=== PATIENT | male | born 1935 | race Caucasian/White ===

== ENCOUNTER 2017-07-10 19:06 | Emergency (ER) | payer MEDICARE, BC ==
[2017-07-10 19:19] VITALS: BP 159/64
--- NOTE | 2017-07-10 19:41 | EDM.PDOC ---
ED HPI GENERAL MEDICAL PROBLEM - General Chief Complaint: Back Pain or Injury Stated Complaint: CAN'T TURN HIS NECK Time Seen by Provider: 07/10/17 19:16 Source of Information: Reports: Patient, Family History Limitations: Reports: No Limitations - History of Present Illness INITIAL COMMENTS - FREE TEXT/NARRATIVE: His is an 82-year-old male. He states he woke up this morning with right-sided neck pain. Due to a history of lumbar pain and sciatica he has a very difficult time and sleeping at nighttime and frequently sleeps on his left side or his back. When he sleeps on his left side he is not sure if his pillow supports his neck are not and it could be the reason why the right side of his neck is hurting because he doesn't have good cervical support when sleeping on his left side. He denies any pain down his arms he just complains of right-sided neck pain and muscle and shoulder pain. He has no history of falling down of history of trauma. He says he just woke up this morning and he had the pain. No cough no congestion no fever no chills no other acute symptoms. Neck Pain Score (Numeric/FACES): 5 - Related Data Allergies Allergy/AdvReac Type Severity Reaction Status Date / Time Penicillins Allergy Rash Verified 07/10/17 19:19 Sulfa (Sulfonamide Allergy Other Verified 07/10/17 19:19 Antibiotics) Home Meds: Home Meds Omeprazole [Prilosec] 20 mg PO DAILY 08/31/15 [History] Sertraline HCl [Sertraline HCl] 50 mg PO DAILY 08/31/15 [History] Cyclobenzaprine [Flexeril] 5 mg PO Q8H PRN #10 tablet 07/10/17 [Rx] Furosemide [Lasix] 5 mg PO BID 07/10/17 [History] Polyethylene Glycol 3350 [MiraLAX] 17 gm PO DAILY 07/10/17 [History] traMADol [Ultram] 50 mg PO Q8H #10 tablet 07/10/17 [Rx] Past Medical History HEENT History: Reports: Impaired Vision Gastrointestinal History: Reports: Chronic Constipation Musculoskeletal History: Reports: Back Pain, Chronic Psychiatric History: Reports: Anxiety - Past Surgical History HEENT Surgical History: Reports: Cataract Surgery GI Surgical History: Reports: Appendectomy, Hernia, Inguinal Social & Family History - Tobacco Use Smoking Status *Q: Former Smoker Used Tobacco, but Quit: Yes Month Tobacco Last Used: 40 years ago Second Hand Smoke Exposure: No - Caffeine Use Caffeine Use: Reports: Soda - Recreational Drug Use Recreational Drug Use: No ED ROS GENERAL - Review of Systems Review Of Systems: See Below Constitutional: Denies: Fever, Chills HEENT: Reports: No Symptoms Respiratory: Reports: No Symptoms Cardiovascular: Reports: No Symptoms GI/Abdominal: Reports: No Symptoms : Reports: No Symptoms Musculoskeletal: Reports: Other (Chronic low back pain.) Skin: Reports: No Symptoms Neurological: Reports: Other (Sciatica) Psychiatric: Reports: No Symptoms Hematologic/Lymphatic: Reports: No Symptoms ED EXAM, UPPER BACK/NECK PAIN - Physical Exam Exam: See Below Exam Limited By: No Limitations General Appearance: Alert, WD/WN, No Apparent Distress Eye Exam: Bilateral Eye: Normal Inspection Ears Exam: Normal External Exam Nose Exam: Normal Inspection Throat/Mouth Exam: Normal Inspection, Normal Lips, Normal Voice, No Airway Compromise Head Exam: Normocephalic Neck Exam: Other (Very tender along the right paraspinal muscles and the ligaments, he also has lots of tenderness in the right trapezius muscle as well and slightly into the right upper back area, the left side is nontender, the midline spine is nontender, he does have difficulty in turning his neck to the right though he can get to approximately 30 with rotation right and left, he is not able to flex or extend much secondary to some kyphosis and arthritis) Cardiovascular/Respiratory: Regular Rate, Rhythm GI/Abdominal: Soft Back Exam: Decreased Range of Motion, Other (He has chronic lumbar pain with sciatica) Extremities: Other (He is somewhat stiff and has decreased mobility in his legs and arms believed to be due to arthritis and old age) Neurologic: No Motor/Sensory Deficits, Alert, Normal Mood/Affect, Oriented x 3 Psychiatric: Normal Affect, Normal Mood Skin Exam: Normal Color, Warm/Dry Course - Vital Signs Last Recorded V/S: Last Vital Signs Temp 97.6 F 07/10/17 19:15 Pulse 77 07/10/17 19:15 Resp 18 07/10/17 19:15 BP 159/64 H 07/10/17 19:15 Pulse Ox 99 07/10/17 19:15 - Orders/Labs/Meds Orders: Active Orders 24 hr Category Date Time Status Cervical Spine 2V or 3V [CR] Stat Exams 07/10/17 19:37 Taken - Radiology Interpretation Free Text/Narrative:: X-rays of the cervical spine revealed severe degenerative changes and I don't see any acute abnormalities the bones. - Re-Assessments/Exams Free Text/Narrative Re-Assessment/Exam: 07/10/17 21:00 I spoke to the patient and the family, my concern is he is unsteady on his feet and to give him a muscle relaxer her a pain pill will make him even more unsteady and he might fall. I will put him on some Ultram at the lowest dose since it does have interaction with his sertraline but I am concerned about. I recommended that he see a chiropractor for his symptoms and I'm only going to give him a limited supply of pain meds and a very limited supply of muscle relaxers to help him through the weekend. Departure - Departure Time of Disposition: 21:04 Disposition: Home, Self-Care 01 Condition: Fair Clinical Impression: DJD (degenerative joint disease), cervical Cervical strain, acute Qualifiers: Encounter type: initial encounter Qualified Code(s): S16.1XXA - Strain of muscle, fascia and tendon at neck level, initial encounter - Discharge Information Prescriptions: Cyclobenzaprine [Flexeril] 5 mg PO Q8H PRN #10 tablet PRN Reason: Spasms traMADol [Ultram] 50 mg PO Q8H #10 tablet Referrals: Osman Calles MD [Primary Care Provider] - Forms: ED Department Discharge Additional Instructions: Take the medication as needed for pain and muscle stiffness and soreness but be very careful because they can make you less stable on your feet and I don't want to falling down and causing more injury, follow-up with your chiropractic on Wednesday for recheck of your neck, return to the ER if needed - My Orders Last 24 Hours: My Active Orders 07/10/17 19:37 Cervical Spine 2V or 3V [CR] Stat - Assessment/Plan Last 24 Hours: My Active Orders 07/10/17 19:37 Cervical Spine 2V or 3V [CR] Stat
[2017-07-10] MEDS ORDERED: traMADol 50 MG Tab PO ONE ×2 (20:56→20:59)
--- NOTE | 2017-07-11 17:44 | CR ---
Cervical spine: AP, lateral and odontoid views of the cervical spine were obtained. Comparison: No prior cervical spine imaging. Severe disc space narrowing is noted at C4-C5 and C5-C6 with moderate disc space narrowing at C6-C7. Minimal spondylolisthesis is noted at C4-C5 compatible with degenerative apophyseal change. Anterior osteophytes are noted at C4-C5, C5-C6 and C6-C7. Prevertebral soft tissues are normal. No acute abnormality is appreciated. Impression: 1. Degenerative change as noted above. Diagnostic code #2
== END 2017-07-10 21:20 | disposition home or self-care (01) ==
LOC: JD.ED 19:06
DX: S16.1XXA Strain of muscle, fascia and tendon at neck level, initial encounter (principal); M47.892 Other spondylosis, cervical region; Z88.0 Allergy status to penicillin; Z88.2 Allergy status to sulfonamides; Z79.899 Other long term (current) drug therapy; Z87.891 Personal history of nicotine dependence; X58.XXXA Exposure to other specified factors, initial encounter
CPT/HCPCS: 72040; 72040-26; 99283; A9270-GY

== ENCOUNTER 2018-06-13 03:07 | Inpatient (IN) | payer MEDICARE, BC ==
[2018-06-13] MEDS ORDERED: Sodium Chloride 0.9% 10 ML Syringe FLUSH PRN (03:34)
[2018-06-13] MEDS ORDERED: Sodium Chloride 0.9% 1,000 ML IV SCH (03:45)
--- NOTE | 2018-06-13 04:24 | EDM.PDOC ---
ED HPI GENERAL MEDICAL PROBLEM - General Chief Complaint: Back Pain or Injury Stated Complaint: [facility] Time Seen by Provider: 06/13/18 03:10 Source of Information: Reports: Patient, EMS, Family History Limitations: Reports: No Limitations - History of Present Illness INITIAL COMMENTS - FREE TEXT/NARRATIVE: The patient presents from [place] for a fall and confusion. The patient just moved into [facility] 6 months ago. His has noticed a steady decline. He is more confused and has generalized weakness. His is having to help him more with getting around their apartment and [place]. He has a history of right low back pain with right sided sciatica. He was going to have surgery 10 years ago on his back but he decided to wait. In 2017, he saw Dr Montano and he was going to do surgery but the patient got an infection and they could not do the surgery. His thinks he is not a candidate anymore. He did fall yesterday. His thinks he passed out when he was at the TV trying to turn it on. He was out for just a few seconds. He did land on his right hip and he has some pain with it. This evening he was trying to get up to go to the bathroom. He got caught up in his walker and he fell into the closet. His did not hear him because she stays in a different room. He alerted staff that came to help. He has right hip pain from the fall yesterday but today made it worse. He could walk on it somewhat yesterday. He did not hit his head or hurt his neck. He is having trouble urinating. It takes him awhile to go. He says it hurts when he urinates. He has no fever, chills, cough, congestion or runny nose. He has no chest pain or shortness of breath. Onset: Gradual Duration: Week(s): Location: Reports: Lower Extremity, Right (hip) Quality: Reports: Sharp Severity: Moderate Improves with: Reports: Immobilization Worsens with: Reports: Movement Context: Reports: Trauma (He fell yesterdy and tonight) Associated Symptoms: Reports: No Other Symptoms Back Pain Score (Numeric/FACES): 10 - Related Data Allergies Allergy/AdvReac Type Severity Reaction Status Date / Time Penicillins Allergy Rash Verified 06/13/18 03:18 Sulfa (Sulfonamide Allergy Other Verified 06/13/18 03:18 Antibiotics) Home Meds: Home Meds Omeprazole [Prilosec] 20 mg PO DAILY 08/31/15 [History] Sertraline HCl 50 mg PO DAILY 08/31/15 [History] Polyethylene Glycol 3350 [MiraLAX] 17 gm PO DAILY 07/10/17 [History] Past Medical History HEENT History: Reports: Impaired Vision Gastrointestinal History: Reports: Chronic Constipation Genitourinary History: Reports: Prostate Disorder Musculoskeletal History: Reports: Back Pain, Chronic Psychiatric History: Reports: Anxiety, Dementia Oncologic (Cancer) History: Reports: Prostate - Past Surgical History HEENT Surgical History: Reports: Cataract Surgery GI Surgical History: Reports: Appendectomy, Hernia, Inguinal Male Surgical History: Reports: Prostate Biopsy, Prostatectomy Social & Family History - Tobacco Use Smoking Status *Q: Former Smoker Used Tobacco, but Quit: Yes Month/Year Tobacco Last Used: 34 - Caffeine Use Caffeine Use: Reports: None - Recreational Drug Use Recreational Drug Use: No ED ROS GENERAL - Review of Systems Review Of Systems: See Below Constitutional: Reports: No Symptoms HEENT: Reports: No Symptoms Respiratory: Reports: No Symptoms Cardiovascular: Reports: No Symptoms Endocrine: Reports: No Symptoms GI/Abdominal: Reports: No Symptoms : Reports: No Symptoms Musculoskeletal: Reports: Back Pain, Other (Right hip pain) Neurological: Reports: Confusion ED EXAM,LOWER BACK PAIN/INJURY - Physical Exam Exam: See Below Exam Limited By: No Limitations General Appearance: Alert, No Apparent Distress Ears: Normal External Exam Nose: Normal Inspection Head: Atraumatic, Normocephalic Neck: Normal Inspection, Supple, Non-Tender Respiratory/Chest: No Respiratory Distress, Lungs Clear, Normal Breath Sounds Cardiovascular: Regular Rate, Rhythm, No Edema, No Murmur GI/Abdominal: Soft, Non-Tender, No Organomegaly, No Mass Extremities: Other (Moderate tenderness to the right hip. Good sensation and pulses distally.) EKG INTERPRETATION EKG Date: 06/13/18 Time: 03:41 Rhythm: NSR Rate (Beats/Min): 73 [place]: Normal P-Wave: Present QRS: Normal ST-T: Normal QT: Normal CT/PQ Interval: 1st degree HB Course - Vital Signs Last Recorded V/S: Last Vital Signs Temp 98.6 F 06/13/18 03:12 Pulse 79 06/13/18 03:12 Resp 20 06/13/18 03:12 BP 157/62 H 06/13/18 03:12 Pulse Ox 100 06/13/18 03:12 - Orders/Labs/Meds Orders: Active Orders 24 hr Category Date Time Status Cardiac Monitoring [RC] . DIRECTED Care 06/13/18 03:34 Active EKG Documentation Completion [RC] STAT Care 06/13/18 03:35 Active Peripheral IV Care [RC] . DIRECTED Care 06/13/18 03:35 Active Head wo Cont [CT] Stat Exams 06/13/18 03:35 Taken Hip Min 2V or 3V w Pelvis Rt [CR] Stat Exams 06/13/18 03:36 Taken CULTURE URINE [RM] Stat Lab 06/13/18 04:30 Received Sodium Chloride 0.9% [Normal Saline] 1,000 ml Med 06/13/18 03:45 Active IV ASDIRECTED Sodium Chloride 0.9% [Saline Flush] Med 06/13/18 03:34 Active 10 ml FLUSH ASDIRECTED PRN Peripheral IV Insertion Adult [OM.PC] Stat Oth 06/13/18 03:34 Ordered Medication Orders Sodium Chloride (Normal Saline) 1,000 mls @ 125 mls/hr IV ASDIRECTED CAROLA Last Admin: 06/13/18 03:40 Dose: 125 mls/hr Sodium Chloride (Saline Flush) 10 ml FLUSH ASDIRECTED PRN PRN Reason: Keep Vein Open Last Admin: 06/13/18 03:41 Dose: 10 ml Labs: Laboratory Tests 06/13/18 06/13/18 06/13/18 Range/Units 03:39 03:39 04:30 WBC 7.09 (4.23-9.07) K/mm3 RBC 4.78 (4.63-6.08) M/mm3 Hgb 13.7 (13.7-17.5) gm/L Hct 41.3 (40.1-51.0) % MCV 86.4 (79.0-92.2) fl MCH 28.7 (25.7-32.2) pg MCHC 33.2 (32.2-35.5) g/dl RDW Std Deviation 45.8 H (35.1-43.9) fL Plt Count 151 L (163-337) K/mm3 MPV 10.4 (9.4-12.3) fl Neut % (Auto) 77.7 H (34.0-67.9) % Lymph % (Auto) 10.2 L (21.8-53.1) % [place] % (Auto) 10.7 (5.3-12.2) % Eos % (Auto) 1.0 (0.8-7.0) Baso % (Auto) 0.3 (0.1-1.2) % Neut # (Auto) 5.51 H (1.78-5.38) K/mm3 Lymph # (Auto) 0.72 L (1.32-3.57) K/mm3 [place] # (Auto) 0.76 (0.30-0.82) K/mm3 Eos # (Auto) 0.07 (0.04-0.54) K/mm3 Baso # (Auto) 0.02 (0.01-0.08) K/mm3 Sodium 140 (136-145) mEq/L Potassium 4.0 (3.5-5.1) mEq/L Chloride 104 (98-107) mEq/L Carbon Dioxide 27 (21-32) mEq/L Anion Gap 13.0 (5-15) BUN 23 H (7-18) mg/dL Creatinine 1.1 (0.7-1.3) mg/dL Est Cr Clr Drug Dosing 48.11 mL/min Estimated GFR (MDRD) > 60 (>60) mL/min BUN/Creatinine Ratio 20.9 H (14-18) Glucose 126 H (83-115) mg/dL Calcium 9.1 (8.5-10.1) mg/dL Magnesium 2.1 (1.8-2.4) mg/dl Total Bilirubin 1.0 (0.2-1.0) mg/dL AST 12 L (15-37) U/L ALT 17 (16-63) U/L Alkaline Phosphatase 72 (46-116) U/L Troponin I < 0.017 (0.00-0.056) ng/mL C-Reactive Protein 3.0 H* (<1.0) mg/dL Total Protein 7.3 (6.4-8.2) g/dl Albumin 3.7 (3.4-5.0) g/dl Globulin 3.6 gm/dL Albumin/Globulin Ratio 1.0 (1-2) Urine Color Yellow (Yellow) Urine Appearance Cloudy H (Clear) Urine pH 7.5 (5.0-8.0) Ur Specific [place] 1.020 (1.005-1.030) Urine Protein Negative (Negative) Urine Glucose (UA) Negative (Negative) Urine Ketones Negative (Negative) Urine Occult Blood 2+ H (Negative) Urine Nitrite Positive H (Negative) Urine Bilirubin Negative (Negative) Urine Urobilinogen 0.2 (0.2-1.0) Ur Leukocyte Esterase Trace H (Negative) Urine RBC 0-5 (0-5) /hpf Urine WBC 5-10 H (0-5) /hpf Ur Epithelial Cells Not seen (0-5) /hpf Amorphous Sediment Moderate H (NOT SEEN) /hpf Urine Bacteria Few (FEW) /hpf Urine Mucus Not seen (FEW) /hpf Meds: Medications Generic Name Dose Route Start Last Admin Trade Name Freq PRN Reason Stop Dose Admin Sodium Chloride 1,000 mls @ 125 mls/hr 06/13/18 03:45 06/13/18 03:40 Normal Saline IV 125 mls/hr ASDIRECTED CAROLA Administration Sodium Chloride 10 ml 06/13/18 03:34 06/13/18 03:41 Saline Flush FLUSH 10 ml ASDIRECTED PRN Administration Keep Vein Open Discontinued Medications Generic Name Dose Route Start Last Admin Trade Name Freq PRN Reason Stop Dose Admin Ceftriaxone Sodium 2 gm/ 100 mls @ 200 mls/hr 06/13/18 05:56 06/13/18 06:09 Sodium Chloride IV 06/13/18 06:25 200 mls/hr ONETIME ONE Administration - Re-Assessments/Exams Free Text/Narrative Re-Assessment/Exam: 06/13/18 04:27 I ordered an IV NS at 125mL/hr, EKG, CT of his head, labs and a UA. 06/13/18 06:29 His EKG shows a NSR with PACs. The CT of his head shows no CT evidence for acute intracranial abnormality. Mild progression of atrophy and chronic ischemic changes since 01/11/12. His CBC looks good. His glucose was slightly elevated at 126. His troponin is negative. His CRP is 3. His UA shows a UTI. I did a urine culture and I ordered rocephin 2 grams IV. The x-ray of his right hip shows no hip fracture. His says he has a tremor and she thought he had Parkinson's disease. He was evaluated by a neurologist Dr Graham in [place] and he concluded he did not have Parkinson's disease. I feel he needs to be admitted. He has a UTI, syncopal episode, chronic back pain with sciatica , tremor, generalized weakness and trouble getting around at home. I talked with Dr Fonseca and he agreed to the admission. At this time we thought he would be observation. Departure - Departure Time of Disposition: 06:40 Disposition: Refer to Observation Condition: Poor Clinical Impression: Falls frequently, Generalized weakness, Confusion and disorientation Sciatica Qualifiers: Laterality: right Qualified Code(s): M54.31 - Sciatica, right side Chronic low back pain Qualifiers: Back pain laterality: right Sciatica presence: with sciatica Sciatica laterality: sciatica of right side Qualified Code(s): M54.41 - Lumbago with sciatica, right side; G89.29 - Other chronic pain Syncope Qualifiers: Syncope type: unspecified Qualified Code(s): R55 - Syncope and collapse Contusion of right hip Qualifiers: Encounter type: initial encounter Qualified Code(s): S70.01XA - Contusion of right hip, initial encounter UTI (urinary tract infection) Qualifiers: Urinary tract infection type: acute cystitis Hematuria presence: without hematuria Qualified Code(s): N30.00 - Acute cystitis without hematuria - Discharge Information Forms: ED Department Discharge - My Orders Last 24 Hours: My Active Orders 06/13/18 03:34 Cardiac Monitoring [RC] . DIRECTED Sodium Chloride 0.9% [Saline Flush] 10 ml FLUSH ASDIRECTED PRN Peripheral IV Insertion Adult [OM.PC] Stat 06/13/18 03:35 EKG Documentation Completion [RC] STAT Peripheral IV Care [RC] . DIRECTED Head wo Cont [CT] Stat 06/13/18 03:36 Hip Min 2V or 3V w Pelvis Rt [CR] Stat 06/13/18 03:45 Sodium Chloride 0.9% [Normal Saline] 1,000 ml IV ASDIRECTED 06/13/18 04:30 CULTURE URINE [RM] Stat - Assessment/Plan Last 24 Hours: My Active Orders 06/13/18 03:34 Cardiac Monitoring [RC] . DIRECTED Sodium Chloride 0.9% [Saline Flush] 10 ml FLUSH ASDIRECTED PRN Peripheral IV Insertion Adult [OM.PC] Stat 06/13/18 03:35 EKG Documentation Completion [RC] STAT Peripheral IV Care [RC] . DIRECTED Head wo Cont [CT] Stat 06/13/18 03:36 Hip Min 2V or 3V w Pelvis Rt [CR] Stat 06/13/18 03:45 Sodium Chloride 0.9% [Normal Saline] 1,000 ml IV ASDIRECTED 06/13/18 04:30 CULTURE URINE [RM] Stat
[2018-06-13] MEDS ORDERED: cefTRIAXone 2 GM in Sodium Chloride 0.9% 100 ML IV ONE (05:56)
--- NOTE | 2018-06-13 07:57 | CR ---
Pelvis and right hip: AP view of the pelvis was obtained as well as frog-leg lateral view of the right hip. Nursing: No prior hip exam. Degenerative change is noted within the lower lumbar spine. Joint spaces within both hips are maintained. Sacroiliac joints are within normal limits. Osteopenia is present. No discrete fracture or dislocation is seen. Impression: 1. Findings as noted above. Nothing acute is seen. Diagnostic code #2
--- NOTE | 2018-06-13 08:23 | CT ---
Head CT Technique: Multiple axial sections through the brain were obtained. Intravenous contrast was not utilized. Comparison: Previous head CT study of 01/29/12 and MRI exam on 03/10/12. Findings: Ventricles along with basal cisterns and sulci over the convexities are moderately prominent. Mild diminished density is noted within the periventricular white matter compatible with small vessel ischemic demyelination change. 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 No other abnormal parenchymal densities are seen. No evidence of intracranial hemorrhage. No midline shift or mass effect is seen. No discrete calvarial abnormality is seen. Visualized sinuses are clear. Impression: 1. Senescent change as noted above. Senescent change has slightly progressed from previous exams. 2. Nothing acute is appreciated on noncontrast head CT exam. Diagnostic code #2 I agree with preliminary report from [facility], finalized on 06/13/18, 7:20 AM Central Time
[2018-06-13] MEDS ORDERED: Ondansetron 4 MG Tab.DIS PO PRN (10:51)
[2018-06-13] MEDS ORDERED: HYDROmorphone 1 MG/ML Syringe IVPUSH PRN (10:51)
[2018-06-13] MEDS ORDERED: Bisacodyl 5 MG Tab PO PRN (10:51)
[2018-06-13] MEDS ORDERED: Docusate Sodium 100 MG Cap PO PRN (10:51)
[2018-06-13] MEDS ORDERED: Ondansetron 4 MG/2 ML SDV IV PRN (10:51)
[2018-06-13] MEDS ORDERED: Polyethylene Glycol 3350 Powder 17 GM Packet PO PRN (10:51)
[2018-06-13] MEDS ORDERED: Albuterol/Ipratropium 3.0-0.5 MG/3 ML Neb Soln NEB PRN (10:51)
[2018-06-13] MEDS ORDERED: Magnesium Hydroxide 400 MG/5 ML Susp 30 ML Cup PO PRN (10:51)
[2018-06-13] MEDS ORDERED: Acetaminophen 325 MG Tab PO PRN (10:51)
[2018-06-13] MEDS ORDERED: Albuterol 0.083% 2.5 MG/3 ML Neb Soln NEB PRN (10:51)
[2018-06-13] MEDS ORDERED: Acetaminophen/HYDROcodone 325-5 MG Tab PO PRN (10:51)
[2018-06-13] MEDS ORDERED: hydrALAZINE 20 MG/ML SDV IVPUSH PRN (10:55)
[2018-06-13] MEDS ORDERED: cefTRIAXone 2 GM Vial IVPUSH SCH (11:00)
[2018-06-13] MEDS ORDERED: FUROSEMIDE 20 MG PO SCH (11:45)
--- NOTE | 2018-06-13 12:02 | PCM.HP ---
H&P History of Present Illness - General Date of Service: 06/13/18 Admit Problem/Dx: Admission Diagnosis/Problem Admission Diagnosis/Problem UTI, Urinary tract infectious disease Source of Information: Patient, Family, Provider History Limitations: Reports: Altered Mental Status (h/o dementia) - History of Present Illness Initial Comments - Free Text/Narative: This is an 83 yo male with past medical h/o Dementia, Anxiety, Prostate CA s/p prostatectomy, Back pain, Constipation, h/o appendectomy, h/o inguinal hernia who comes in for UTI, confusion, and recent fall. History in ED mostly from . He c/o R hip pain and difficultly/pain with urination. His initial workup in the ED showed a CBC remarkable for RDW 45.8, Plt 151, Neut 77.7%, Lymph 10.2%. His chemistry is remarkable for BUN 23, Glu 126, AST 12 , CRP 3. UA impressive for UTI. CT head showed nothing acute. R hip XR showed nothing acute. EKG shows 1st degree HB. He is subsequently admitted to the medical floor. He is a DNR/DNI. His PCP is Dr. Osman Telles. He is from [facility]. Back Pain Score (Numeric/FACES): 10 - Related Data Allergies/Adverse Reactions: Allergies Allergy/AdvReac Type Severity Reaction Status Date / Time Penicillins Allergy Rash Verified 06/13/18 09:06 Sulfa (Sulfonamide Allergy Other Verified 06/13/18 09:06 Antibiotics) Home Medications: Home Meds Omeprazole [Prilosec] 20 mg PO DAILY 08/31/15 [History] Sertraline HCl 50 mg PO BEDTIME 08/31/15 [History] Polyethylene Glycol 3350 [MiraLAX] 17 gm PO DAILY 07/10/17 [History] Furosemide 10 mg PO BID 06/13/18 [History] Past Medical History HEENT History: Reports: Impaired Vision Gastrointestinal History: Reports: Chronic Constipation, GERD Genitourinary History: Reports: Prostate Disorder, Other (See Below) Other Genitourinary History: prostate sx Musculoskeletal History: Reports: Back Pain, Chronic Psychiatric History: Reports: Anxiety, Dementia Oncologic (Cancer) History: Reports: Prostate - Infectious Disease History Infectious Disease History: Reports: Chicken Pox, Measles, Mumps - Past Surgical History HEENT Surgical History: Reports: Cataract Surgery GI Surgical History: Reports: Appendectomy, Hernia, Inguinal Male Surgical History: Reports: Prostate Biopsy, Prostatectomy Social & Family History - Family History Family Medical History: Noncontributory - Tobacco Use Smoking Status *Q: Former Smoker Used Tobacco, but Quit: Yes Month/Year Tobacco Last Used: 50 years ago - Caffeine Use Caffeine Use: Reports: Coffee, Soda, Tea - Recreational Drug Use Recreational Drug Use: No H&P Review of Systems - Review of Systems: Review Of Systems: See Below General: Reports: No Symptoms, Weakness. Denies: Fever, Chills HEENT: Reports: No Symptoms Pulmonary: Reports: No Symptoms. Denies: Shortness of Breath Cardiovascular: Reports: No Symptoms. Denies: Chest Pain Gastrointestinal: Reports: No Symptoms. Denies: Abdominal Pain, Diarrhea, Nausea, Vomiting Genitourinary: Reports: Dysuria, Pain, Retention Musculoskeletal: Reports: Back Pain (chronic), Joint Pain (R hip pain, 8/10 per pt) Skin: Reports: No Symptoms Psychiatric: Reports: Confusion Neurological: Reports: Confusion, Difficulty Walking, Weakness, Gait Disturbance Hematologic/Lymphatic: Reports: No Symptoms Immunologic: Reports: No Symptoms Exam - Exam Exam: See Below - Vital Signs Vital Signs: Last Vital Signs Temp 97.7 F 06/13/18 08:01 Pulse 62 06/13/18 08:01 Resp 12 06/13/18 08:01 BP 137/59 L 06/13/18 08:01 Pulse Ox 97 06/13/18 08:01 Weight: 155 lb 9.6 oz - Exam Quality Assessment: DVT Prophylaxis General: Alert, Cooperative, Mild Distress HEENT: PERRLA, Hearing Intact, Mucosa Moist & [place], Nares Patent, Normal Nasal Septum, Posterior Pharynx Clear, Conjunctiva Clear, EOMI, EACs Clear, TMs Clear Neck: Supple, Trachea Midline, 2 Lungs: Clear to Auscultation, Normal Respiratory Effort Cardiovascular: Regular Rate, Regular Rhythm GI/Abdominal Exam: Normal Bowel Sounds, Soft, Non-Tender, No Organomegaly, No Distention, No Abnormal Bruit, No Mass, Pelvis Stable (Male) Exam: Deferred Rectal (Males) Exam: Deferred Back Exam: Normal Inspection, Full Range of Motion, NT Extremities: Normal Inspection, No Pedal Edema, Normal Capillary Refill, Limited Range of Motion (R hip s/p fall), Other (R hip TTP s/p fall) Peripheral Pulses: 2+: Posterior Tibial (L), Posterior Tibial (R), Dorsalis Pedis (L), Dorsalis Pedis (R) Skin: Warm, Dry, Intact Neurological: Cranial Nerves Intact (grossly) Neuro Extensive - Mental Status: Alert Psychiatric: Alert - Patient Data Lab Results Last 24 hrs: Laboratory Results - last 24 hr 06/13/18 06/13/18 06/13/18 Range/Units 03:39 03:39 04:30 WBC 7.09 (4.23-9.07) K/mm3 RBC 4.78 (4.63-6.08) M/mm3 Hgb 13.7 (13.7-17.5) gm/L Hct 41.3 (40.1-51.0) % MCV 86.4 (79.0-92.2) fl MCH 28.7 (25.7-32.2) pg MCHC 33.2 (32.2-35.5) g/dl RDW Std Deviation 45.8 H (35.1-43.9) fL Plt Count 151 L (163-337) K/mm3 MPV 10.4 (9.4-12.3) fl Neut % (Auto) 77.7 H (34.0-67.9) % Lymph % (Auto) 10.2 L (21.8-53.1) % [place] % (Auto) 10.7 (5.3-12.2) % Eos % (Auto) 1.0 (0.8-7.0) Baso % (Auto) 0.3 (0.1-1.2) % Neut # (Auto) 5.51 H (1.78-5.38) K/mm3 Lymph # (Auto) 0.72 L (1.32-3.57) K/mm3 [place] # (Auto) 0.76 (0.30-0.82) K/mm3 Eos # (Auto) 0.07 (0.04-0.54) K/mm3 Baso # (Auto) 0.02 (0.01-0.08) K/mm3 Sodium 140 (136-145) mEq/L Potassium 4.0 (3.5-5.1) mEq/L Chloride 104 (98-107) mEq/L Carbon Dioxide 27 (21-32) mEq/L Anion Gap 13.0 (5-15) BUN 23 H (7-18) mg/dL Creatinine 1.1 (0.7-1.3) mg/dL Est Cr Clr Drug Dosing 48.11 mL/min Estimated GFR (MDRD) > 60 (>60) mL/min BUN/Creatinine Ratio 20.9 H (14-18) Glucose 126 H (83-115) mg/dL Calcium 9.1 (8.5-10.1) mg/dL Magnesium 2.1 (1.8-2.4) mg/dl Total Bilirubin 1.0 (0.2-1.0) mg/dL AST 12 L (15-37) U/L ALT 17 (16-63) U/L Alkaline Phosphatase 72 (46-116) U/L Troponin I < 0.017 (0.00-0.056) ng/mL C-Reactive Protein 3.0 H* (<1.0) mg/dL Total Protein 7.3 (6.4-8.2) g/dl Albumin 3.7 (3.4-5.0) g/dl Globulin 3.6 gm/dL Albumin/Globulin Ratio 1.0 (1-2) Urine Color Yellow (Yellow) Urine Appearance Cloudy H (Clear) Urine pH 7.5 (5.0-8.0) Ur Specific [place] 1.020 (1.005-1.030) Urine Protein Negative (Negative) Urine Glucose (UA) Negative (Negative) Urine Ketones Negative (Negative) Urine Occult Blood 2+ H (Negative) Urine Nitrite Positive H (Negative) Urine Bilirubin Negative (Negative) Urine Urobilinogen 0.2 (0.2-1.0) Ur Leukocyte Esterase Trace H (Negative) Urine RBC 0-5 (0-5) /hpf Urine WBC 5-10 H (0-5) /hpf Ur Epithelial Cells Not seen (0-5) /hpf Amorphous Sediment Moderate H (NOT SEEN) /hpf Urine Bacteria Few (FEW) /hpf Urine Mucus Not seen (FEW) /hpf Result Diagrams: 06/13/18 03:39 06/13/18 03:39 - Problem List (1) Chronic low back pain SNOMED Code(s): 079929749 ICD Code: M54.5 - LOW BACK PAIN; G89.29 - OTHER CHRONIC PAIN Status: Chronic Priority: Low Current Visit: Yes Qualifiers: Back pain laterality: right Sciatica presence: with sciatica Sciatica laterality: sciatica of right side Qualified Code(s): M54.41 - Lumbago with sciatica, right side; G89.29 - Other chronic pain (2) Confusion and disorientation SNOMED Code(s): 07268815, 23237973 ICD Code: R41.0 - DISORIENTATION, UNSPECIFIED Status: Acute Priority: High Current Visit: Yes (3) Contusion of right hip SNOMED Code(s): 25906025 ICD Code: S70.01XA - CONTUSION OF RIGHT HIP, INITIAL ENCOUNTER Status: Acute Priority: High Current Visit: Yes Qualifiers: Encounter type: initial encounter Qualified Code(s): S70.01XA - Contusion of right hip, initial encounter (4) Falls frequently SNOMED Code(s): 876422186 ICD Code: R29.6 - REPEATED FALLS Status: Acute Priority: High Current Visit: Yes (5) Generalized weakness SNOMED Code(s): 16314630 ICD Code: R53.1 - WEAKNESS Status: Acute Priority: High Current Visit: Yes (6) Sciatica SNOMED Code(s): 93024113 ICD Code: M54.30 - SCIATICA, UNSPECIFIED SIDE Status: Chronic Priority: Low Current Visit: Yes Qualifiers: Laterality: right Qualified Code(s): M54.31 - Sciatica, right side (7) Syncope SNOMED Code(s): 715156279 ICD Code: R55 - SYNCOPE AND COLLAPSE Status: Acute Priority: High Current Visit: Yes Qualifiers: Syncope type: unspecified Qualified Code(s): R55 - Syncope and collapse (8) UTI (urinary tract infection) SNOMED Code(s): 15728148 ICD Code: N39.0 - URINARY TRACT INFECTION, SITE NOT SPECIFIED Status: Acute Priority: High Current Visit: Yes Qualifiers: Urinary tract infection type: acute cystitis Hematuria presence: without hematuria Qualified Code(s): N30.00 - Acute cystitis without hematuria Problem List Initiated/Reviewed/Updated: Yes Orders Last 24hrs: Active Orders 24 hr Category Date Time Status Patient Status [ADT] Routine ADT 06/13/18 07:10 Active Cardiac Monitoring [RC] . DIRECTED Care 06/13/18 03:34 Active Height and Weight [RC] DAILY Care 06/13/18 10:51 Active Intake and Output [RC] QSHIFT Care 06/13/18 10:51 Active May Shower [RC] ASDIRECTED Care 06/13/18 10:51 Active Oxygen Therapy [RC] PRN Care 06/13/18 10:51 Active Pulse Oximetry [RC] PRN Care 06/13/18 10:51 Active RT Aerosol Therapy [RC] ASDIRECTED Care 06/13/18 10:52 Active Up With Assistance [RC] ASDIRECTED Care 06/13/18 10:51 Active VTE/DVT Education [RC] PER UNIT ROUTINE Care 06/13/18 10:51 Active Vital Signs [RC] Q4H Care 06/13/18 10:51 Active Consult to Case Management/Nurse Staff [CONS] Cons 06/13/18 10:51 Active Routine OT Evaluation and Treatment [CONS] Routine Cons 06/13/18 10:51 Active PT Evaluation and Treatment [CONS] Routine Cons 06/13/18 10:51 Active ZIGZAGGER Evaluation and Treatment [CONS] Routine Cons 06/13/18 10:50 Active Heart Healthy Diet [DIET] Diet 06/13/18 Breakfast Active BASIC METABOLIC PANEL,BMP [CHEM] AM Lab 06/14/18 05:11 Ordered BASIC METABOLIC PANEL,BMP [CHEM] AM Lab 06/15/18 05:11 Ordered BASIC METABOLIC PANEL,BMP [CHEM] AM Lab 06/16/18 05:11 Ordered BASIC METABOLIC PANEL,BMP [CHEM] AM Lab 06/17/18 05:11 Ordered BASIC METABOLIC PANEL,BMP [CHEM] AM Lab 06/18/18 05:11 Ordered C-REACTIVE PROTEIN [CHEM] AM Lab 06/14/18 05:11 Ordered C-REACTIVE PROTEIN [CHEM] AM Lab 06/15/18 05:11 Ordered C-REACTIVE PROTEIN [CHEM] AM Lab 06/16/18 05:11 Ordered C-REACTIVE PROTEIN [CHEM] AM Lab 06/17/18 05:11 Ordered C-REACTIVE PROTEIN [CHEM] AM Lab 06/18/18 05:11 Ordered CBC WITH AUTO DIFF [HEME] AM Lab 06/14/18 05:11 Ordered CBC WITH AUTO DIFF [HEME] AM Lab 06/15/18 05:11 Ordered CBC WITH AUTO DIFF [HEME] AM Lab 06/16/18 05:11 Ordered CBC WITH AUTO DIFF [HEME] AM Lab 06/17/18 05:11 Ordered CBC WITH AUTO DIFF [HEME] AM Lab 06/18/18 05:11 Ordered CULTURE URINE [RM] Stat Lab 06/13/18 04:30 Received MAGNESIUM [CHEM] AM Lab 06/14/18 05:11 Ordered MAGNESIUM [CHEM] AM Lab 06/15/18 05:11 Ordered MAGNESIUM [CHEM] AM Lab 06/16/18 05:11 Ordered MAGNESIUM [CHEM] AM Lab 06/17/18 05:11 Ordered MAGNESIUM [CHEM] AM Lab 06/18/18 05:11 Ordered Acetaminophen [Tylenol] Med 06/13/18 10:51 Active 650 mg PO Q4H PRN Acetaminophen/HYDROcodone [[place] 325-5 MG] Med 06/13/18 10:51 Active 1 tab PO Q4H PRN Albuterol [Proventil Neb Soln] Med 06/13/18 10:51 Active 2.5 mg NEB Q2H PRN Albuterol/Ipratropium [DuoNeb 3.0-0.5 MG/3 ML] Med 06/13/18 10:51 Active 3 ml NEB Q4H PRN Bisacodyl [Dulcolax] Med 06/13/18 10:51 Active 5 mg PO DAILY PRN Docusate Sodium [Colace] Med 06/13/18 10:51 Active 100 mg PO BID PRN Docusate Sodium/Sennosides [Senna Plus] Med 06/13/18 10:51 Active 1 tab PO BID PRN Enoxaparin [Lovenox] Med 06/14/18 09:00 Active 40 mg SUBCUT DAILY Furosemide [Lasix] Med 06/13/18 11:45 Active 10 mg PO BID HYDROmorphone [Dilaudid] Med 06/13/18 10:51 Active 0.25 mg IVPUSH Q2H PRN Magnesium Hydroxide [Milk of Magnesia] Med 06/13/18 10:51 Active 30 ml PO Q12H PRN Ondansetron [Zofran ODT] Med 06/13/18 10:51 Active 4 mg PO Q4H PRN Ondansetron [Zofran] Med 06/13/18 10:51 Active 4 mg IV Q4H PRN Patient's Own Medication [Ptom] Med 06/14/18 11:30 Active 0 each PO ACBREAKFAST Polyethylene Glycol 3350 [MiraLAX] Med 06/13/18 10:51 Active 17 gm PO DAILY PRN Saccharomyces Boulardii [Florastor] Med 06/13/18 21:00 Active 250 mg PO BID Sertraline [Zoloft] Med 06/13/18 21:00 Active 50 mg PO BEDTIME Sodium Chloride 0.9% [Saline Flush] Med 06/13/18 03:34 Active 10 ml FLUSH ASDIRECTED PRN Temazepam [Restoril] Med 06/13/18 21:00 Active 7.5 mg PO BEDTIME PRN cefTRIAXone [Rocephin] 2 gm Med 06/14/18 06:00 Active Sodium Chloride 0.9% [Normal Saline] 100 ml IV Q24H hydrALAZINE [Apresoline] Med 06/13/18 10:55 Active 10 mg IVPUSH Q4H PRN Peripheral IV Insertion Adult [OM.PC] Stat Oth 06/13/18 03:34 Ordered Resuscitation Status Routine Resus Stat 06/13/18 09:08 Ordered Medication Orders Acetaminophen (Tylenol) 650 mg PO Q4H PRN PRN Reason: Pain (Mild 1-3)/fever Hydrocodone Bitart/Acetaminophen ([place] 325-5 Mg) 1 tab PO Q4H PRN PRN Reason: Pain (moderate 4-6) Albuterol (Proventil Neb Soln) 2.5 mg NEB Q2H PRN PRN Reason: Shortness Of Breath/wheezing Albuterol/Ipratropium (Duoneb 3.0-0.5 Mg/3 Ml) 3 ml NEB Q4H PRN PRN Reason: Shortness Of Breath/wheezing Bisacodyl (Dulcolax) 5 mg PO DAILY PRN PRN Reason: Constipation Docusate Sodium (Colace) 100 mg PO BID PRN PRN Reason: Constipation Enoxaparin Sodium (Lovenox) 40 mg SUBCUT DAILY [place] Furosemide (Lasix) 10 mg PO BID [place] Hydralazine HCl (Apresoline) 10 mg IVPUSH Q4H PRN PRN Reason: Hypertension Hydromorphone HCl (Dilaudid) 0.25 mg IVPUSH Q2H PRN PRN Reason: Pain (severe 7-10) Ceftriaxone Sodium 2 gm/ (Sodium Chloride) 100 mls @ 200 mls/hr IV Q24H [place] Magnesium Hydroxide (Milk Of Magnesia) 30 ml PO Q12H PRN PRN Reason: Constipation Ondansetron HCl (Zofran Odt) 4 mg PO Q4H PRN PRN Reason: nausea, able to take PO Ondansetron HCl (Zofran) 4 mg IV Q4H PRN PRN Reason: Nausea/Vomiting Omeprazole 20 Mg 0 each PO ACBREAKFAST [place] Polyethylene Glycol (Miralax) 17 gm PO DAILY PRN PRN Reason: Constipation Saccharomyces Boulardii (Florastor) 250 mg PO BID [place] Senna/Docusate Sodium (Senna Plus) 1 tab PO BID PRN PRN Reason: Constipation Sertraline HCl (Zoloft) 50 mg PO BEDTIME [place] Sodium Chloride (Saline Flush) 10 ml FLUSH ASDIRECTED PRN PRN Reason: Keep Vein Open Last Admin: 06/13/18 03:41 Dose: 10 ml Temazepam (Restoril) 7.5 mg PO BEDTIME PRN PRN Reason: Sleep Assessment/Plan Comment:: Assessment/Plan: Acute: UTI * Pain and difficulty urinating * UA in ED impressive for UTI * Urine culture pending * Rocephin started in ED--> continue Right hip pain s/p Fall * Risk factors: Uses walker, generalized weakness, confusion * Unwitnessed fall x 2 * Hip Xray in ED negative for acute injury * Pain management PRN * PT/OT consult * CM/SW for D/C planning--> currently taking care of him at [facility] ; is taking increasing effort Increased Confusion * Risk factor: h/o Dementia, UTI * ZIGZAGGER cognitive consult * Monitor Generalized Weakness * Risk factors: h/o dementia, UTI, chronic back pain, chronic R-sided sciatica * PT/OT consult * Up with assistance; uses walker at home Chronic: Dementia Anxiety Prostate CA s/p prostatectomy Back pain R sided Sciatica Constipation h/o appendectomy h/o inguinal hernia Plan: MSP w/ Telemetry Fall Precautions Routine AM Labs PT/OT consult Heart Healthy diet SW/CM for d/c planning DVT prophylaxis: Lovenox GI prophylaxis: Protonix (on omeprazole at home) Code status: DNR/DNI; PCP: Dr. Osman Telles
[2018-06-13] MEDS: Furosemide 20 MG Tab PO SCH (16:56)
[2018-06-13] MEDS: Sertraline 50 MG Tab PO SCH (20:32)
[2018-06-13] MEDS: Saccharomyces Boulardii (Probiotic) 250 MG Cap PO SCH (20:32)
[2018-06-13] MEDS ORDERED: Famotidine 20 MG Tab PO SCH (21:00)
[2018-06-13] MEDS ORDERED: Temazepam 7.5 MG Cap PO PRN (21:00)
[2018-06-13] MEDS ORDERED: SERTRALINE 50 MG PO SCH (21:00)
[2018-06-14] MEDS: cefTRIAXone 2 GM in Sodium Chloride 0.9% 100 ML IV SCH (05:55)
[2018-06-14] MEDS: Furosemide 20 MG Tab PO SCH ×2 (05:56→15:29)
[2018-06-14] MEDS: Pantoprazole 40 MG Tab.CR PO SCH (06:00)
[2018-06-14] MEDS: Enoxaparin 40 MG/0.4 ML Syringe SUBCUT SCH (09:02)
[2018-06-14] MEDS: Saccharomyces Boulardii (Probiotic) 250 MG Cap PO SCH ×2 (09:02→20:20)
--- NOTE | 2018-06-14 09:11 | PCM.PN ---
- General Info Date of Service: 06/14/18 Admission Dx/Problem (Free Text): Admission Diagnosis/Problem Admission Diagnosis/Problem UTI, Urinary tract infectious disease Subjective Update: In to see Elias. He is laying in bed. He is in good spirits today, states he is feeling well and no longer has pain with urination. He has no current complaints. No concerns from nursing. Still awaiting urine culture results, so will continue Rocephin for treatment for now. No leukocytosis, but CRP is trending down. Functional Status: Reports: Pain Controlled, Tolerating Diet, Ambulating, Urinating - Review of Systems General: Reports: Weakness HEENT: Reports: No Symptoms Pulmonary: Reports: No Symptoms Cardiovascular: Reports: No Symptoms Gastrointestinal: Reports: No Symptoms Genitourinary: Reports: No Symptoms Musculoskeletal: Reports: Back Pain, Joint Pain (R hip s/p fall) Skin: Reports: No Symptoms Neurological: Reports: Confusion, Difficulty Walking, Weakness, Gait Disturbance Psychiatric: Reports: Confusion - Patient Data Vitals - Most Recent: Last Vital Signs Temp 99.1 F 06/14/18 07:17 Pulse 59 L 06/14/18 07:17 Resp 24 H 06/14/18 07:17 BP 117/64 06/14/18 07:17 Pulse Ox 94 L 06/14/18 07:17 Weight - Most Recent: 155 lb 7 oz I&O - Last 24 Hours: Intake & Output 06/13/18 06/14/18 06/14/18 22:59 06:59 14:59 Intake Total 1520 300 Output Total 125 750 Balance 1395 -450 Lab Results Last 24 Hours: Laboratory Results - last 24 hr 06/14/18 06/14/18 Range/Units 06:40 06:40 WBC 4.99 (4.23-9.07) K/mm3 RBC 4.51 L (4.63-6.08) M/mm3 Hgb 12.9 L (13.7-17.5) gm/L Hct 38.9 L (40.1-51.0) % MCV 86.3 (79.0-92.2) fl MCH 28.6 (25.7-32.2) pg MCHC 33.2 (32.2-35.5) g/dl RDW Std Deviation 44.7 H (35.1-43.9) fL Plt Count 145 L (163-337) K/mm3 MPV 11.0 (9.4-12.3) fl Neut % (Auto) 71.0 H (34.0-67.9) % Lymph % (Auto) 15.2 L (21.8-53.1) % [place] % (Auto) 9.0 (5.3-12.2) % Eos % (Auto) 4.4 (0.8-7.0) Baso % (Auto) 0.4 (0.1-1.2) % Neut # (Auto) 3.54 (1.78-5.38) K/mm3 Lymph # (Auto) 0.76 L (1.32-3.57) K/mm3 [place] # (Auto) 0.45 (0.30-0.82) K/mm3 Eos # (Auto) 0.22 (0.04-0.54) K/mm3 Baso # (Auto) 0.02 (0.01-0.08) K/mm3 Sodium 139 (136-145) mEq/L Potassium 3.9 (3.5-5.1) mEq/L Chloride 106 (98-107) mEq/L Carbon Dioxide 27 (21-32) mEq/L Anion Gap 9.9 (5-15) BUN 17 (7-18) mg/dL Creatinine 1.0 (0.7-1.3) mg/dL Est Cr Clr Drug Dosing 54.84 mL/min Estimated GFR (MDRD) > 60 (>60) mL/min BUN/Creatinine Ratio 17.0 (14-18) Glucose 105 (83-115) mg/dL Calcium 8.7 (8.5-10.1) mg/dL Magnesium 1.8 (1.8-2.4) mg/dl C-Reactive Protein 2.7 H* (<1.0) mg/dL Med Orders - Current: Current Medications Acetaminophen (Tylenol) 650 mg PO Q4H PRN PRN Reason: Pain (Mild 1-3)/fever Hydrocodone Bitart/Acetaminophen ([place] 325-5 Mg) 1 tab PO Q4H PRN PRN Reason: Pain (moderate 4-6) Albuterol (Proventil Neb Soln) 2.5 mg NEB Q2H PRN PRN Reason: Shortness Of Breath/wheezing Albuterol/Ipratropium (Duoneb 3.0-0.5 Mg/3 Ml) 3 ml NEB Q4H PRN PRN Reason: Shortness Of Breath/wheezing Bisacodyl (Dulcolax) 5 mg PO DAILY PRN PRN Reason: Constipation Docusate Sodium (Colace) 100 mg PO BID PRN PRN Reason: Constipation Enoxaparin Sodium (Lovenox) 40 mg SUBCUT DAILY [facility] Furosemide (Lasix) 10 mg PO BID@0600,1600 [facility] Last Admin: 06/14/18 05:56 Dose: 10 mg Hydralazine HCl (Apresoline) 10 mg IVPUSH Q4H PRN PRN Reason: Hypertension Hydromorphone HCl (Dilaudid) 0.25 mg IVPUSH Q2H PRN PRN Reason: Pain (severe 7-10) Ceftriaxone Sodium 2 gm/ (Sodium Chloride) 100 mls @ 200 mls/hr IV Q24H [facility] Last Admin: 06/14/18 05:55 Dose: 200 mls/hr Magnesium Hydroxide (Milk Of Magnesia) 30 ml PO Q12H PRN PRN Reason: Constipation Ondansetron HCl (Zofran Odt) 4 mg PO Q4H PRN PRN Reason: nausea, able to take PO Ondansetron HCl (Zofran) 4 mg IV Q4H PRN PRN Reason: Nausea/Vomiting Pantoprazole Sodium (Protonix) 40 mg PO DAILY@0700 [facility] Last Admin: 06/14/18 06:00 Dose: 40 mg Polyethylene Glycol (Miralax) 17 gm PO DAILY PRN PRN Reason: Constipation Saccharomyces Boulardii (Florastor) 250 mg PO BID [facility] Last Admin: 06/13/18 20:32 Dose: 250 mg Senna/Docusate Sodium (Senna Plus) 1 tab PO BID PRN PRN Reason: Constipation Sertraline HCl (Zoloft) 50 mg PO BEDTIME [facility] Last Admin: 06/13/18 20:32 Dose: 50 mg Sodium Chloride (Saline Flush) 10 ml FLUSH ASDIRECTED PRN PRN Reason: Keep Vein Open Last Admin: 06/13/18 03:41 Dose: 10 ml Temazepam (Restoril) 7.5 mg PO BEDTIME PRN PRN Reason: Sleep Discontinued Medications Ceftriaxone Sodium (Rocephin) 2 gm IVPUSH Q24H [facility] Last Admin: 06/13/18 16:44 Dose: Not Given Famotidine (Pepcid) 20 mg PO BID [facility] Furosemide (Lasix) 10 mg PO BID [facility] Last Admin: 06/13/18 16:50 Dose: Not Given Sodium Chloride (Normal Saline) 1,000 mls @ 125 mls/hr IV ASDIRECTED [facility] Last Admin: 06/13/18 03:40 Dose: 125 mls/hr Ceftriaxone Sodium 2 gm/ (Sodium Chloride) 100 mls @ 200 mls/hr IV ONETIME ONE Stop: 06/13/18 06:25 Last Admin: 06/13/18 06:09 Dose: 200 mls/hr Omeprazole 20 Mg 0 each PO ACBREAKFAST [facility] Sertraline HCl (Zoloft) 50 mg PO BEDTIME [facility] - Exam Quality Assessment: DVT Prophylaxis General: Alert, Oriented, Cooperative, No Acute Distress HEENT: Pupils Equal, Pupils Reactive, EOMI, Mucous Membr. Moist/[place] Neck: Supple Lungs: Clear to Auscultation, Normal Respiratory Effort Cardiovascular: Regular Rate, Regular Rhythm GI/Abdominal Exam: Normal Bowel Sounds, Soft, Non-Tender, No Organomegaly, No Distention, No Abnormal Bruit, No Mass, Pelvis Stable (Male) Exam: Deferred Back Exam: Normal Inspection Extremities: Normal Inspection, No Pedal Edema, Normal Capillary Refill, Limited Range of Motion (R hip s/p fall), Other (R hip TTP s/p fall) Peripheral Pulses: 2+: Posterior Tibial (L), Posterior Tibial (R), Dorsalis Pedis (L), Dorsalis Pedis (R) Skin: Warm, Dry, Intact Neurological: No New Focal Deficit Psy/Mental Status: Alert - Problem List & Annotations (1) Chronic low back pain SNOMED Code(s): 325175185 Code(s): M54.5 - LOW BACK PAIN; G89.29 - OTHER CHRONIC PAIN Status: Chronic Priority: Low Current Visit: Yes Qualifiers: Back pain laterality: right Sciatica presence: with sciatica Sciatica laterality: sciatica of right side Qualified Code(s): M54.41 - Lumbago with sciatica, right side; G89.29 - Other chronic pain (2) Confusion and disorientation SNOMED Code(s): 27495430, 96137298 Code(s): R41.0 - DISORIENTATION, UNSPECIFIED Status: Acute Priority: High Current Visit: Yes (3) Contusion of right hip SNOMED Code(s): 81070186 Code(s): S70.01XA - CONTUSION OF RIGHT HIP, INITIAL ENCOUNTER Status: Acute Priority: High Current Visit: Yes Qualifiers: Encounter type: initial encounter Qualified Code(s): S70.01XA - Contusion of right hip, initial encounter (4) Falls frequently SNOMED Code(s): 836358823 Code(s): R29.6 - REPEATED FALLS Status: Acute Priority: High Current Visit: Yes (5) Generalized weakness SNOMED Code(s): 79789349 Code(s): R53.1 - WEAKNESS Status: Acute Priority: High Current Visit: Yes (6) Sciatica SNOMED Code(s): 48524848 Code(s): M54.30 - SCIATICA, UNSPECIFIED SIDE Status: Chronic Priority: Low Current Visit: Yes Qualifiers: Laterality: right Qualified Code(s): M54.31 - Sciatica, right side (7) Syncope SNOMED Code(s): 348271816 Code(s): R55 - SYNCOPE AND COLLAPSE Status: Acute Priority: High Current Visit: Yes Qualifiers: Syncope type: unspecified Qualified Code(s): R55 - Syncope and collapse (8) UTI (urinary tract infection) SNOMED Code(s): 38521711 Code(s): N39.0 - URINARY TRACT INFECTION, SITE NOT SPECIFIED Status: Acute Priority: High Current Visit: Yes Qualifiers: Urinary tract infection type: acute cystitis Hematuria presence: without hematuria Qualified Code(s): N30.00 - Acute cystitis without hematuria - Problem List Review Problem List Initiated/Reviewed/Updated: Yes - My Orders Last 24 Hours: My Active Orders 06/13/18 10:50 DUST CONTROL ENGINEER Evaluation and Treatment [CONS] Routine 06/13/18 10:51 Height and Weight [RC] 04 Intake and Output [RC] 04,16 May Shower [RC] ASDIRECTED Oxygen Therapy [RC] PRN Pulse Oximetry [RC] PRN Up With Assistance [RC] ASDIRECTED VTE/DVT Education [RC] PER UNIT ROUTINE Vital Signs [RC] Q4HR Consult to Case Management/High Energy Forming Equipment Operator [CONS] Routine OT Evaluation and Treatment [CONS] Routine PT Evaluation and Treatment [CONS] Routine Acetaminophen [Tylenol] 650 mg PO Q4H PRN Acetaminophen/HYDROcodone [[place] 325-5 MG] 1 tab PO Q4H PRN Albuterol [Proventil Neb Soln] 2.5 mg NEB Q2H PRN Albuterol/Ipratropium [DuoNeb 3.0-0.5 MG/3 ML] 3 ml NEB Q4H PRN Bisacodyl [Dulcolax] 5 mg PO DAILY PRN Docusate Sodium [Colace] 100 mg PO BID PRN Docusate Sodium/Sennosides [Senna Plus] 1 tab PO BID PRN HYDROmorphone [Dilaudid] 0.25 mg IVPUSH Q2H PRN Magnesium Hydroxide [Milk of Magnesia] 30 ml PO Q12H PRN Ondansetron [Zofran ODT] 4 mg PO Q4H PRN Ondansetron [Zofran] 4 mg IV Q4H PRN Polyethylene Glycol 3350 [MiraLAX] 17 gm PO DAILY PRN 06/13/18 10:52 RT Aerosol Therapy [RC] ASDIRECTED 06/13/18 10:55 hydrALAZINE [Apresoline] 10 mg IVPUSH Q4H PRN 06/13/18 17:00 Furosemide [Lasix] 10 mg PO BID@0600,1600 06/13/18 21:00 Saccharomyces Boulardii [Florastor] 250 mg PO BID Sertraline [Zoloft] 50 mg PO BEDTIME Temazepam [Restoril] 7.5 mg PO BEDTIME PRN 06/14/18 06:00 cefTRIAXone [Rocephin] 2 gm Sodium Chloride 0.9% [Normal Saline] 100 ml IV Q24H 06/14/18 07:00 Pantoprazole [ProTONIX] 40 mg PO DAILY@0700 06/14/18 09:00 Enoxaparin [Lovenox] 40 mg SUBCUT DAILY 06/15/18 05:11 BASIC METABOLIC PANEL,BMP [CHEM] AM C-REACTIVE PROTEIN [CHEM] AM CBC WITH AUTO DIFF [HEME] AM MAGNESIUM [CHEM] AM 06/16/18 05:11 BASIC METABOLIC PANEL,BMP [CHEM] AM C-REACTIVE PROTEIN [CHEM] AM CBC WITH AUTO DIFF [HEME] AM MAGNESIUM [CHEM] AM 06/17/18 05:11 BASIC METABOLIC PANEL,BMP [CHEM] AM C-REACTIVE PROTEIN [CHEM] AM CBC WITH AUTO DIFF [HEME] AM MAGNESIUM [CHEM] AM 06/18/18 05:11 BASIC METABOLIC PANEL,BMP [CHEM] AM C-REACTIVE PROTEIN [CHEM] AM CBC WITH AUTO DIFF [HEME] AM MAGNESIUM [CHEM] AM - Plan Plan:: Assessment/Plan: Acute: UTI * Pain and difficulty urinating * No leukocytosis, CRP 3--> 2.7 * UA in ED impressive for UTI * Urine culture pending * Rocephin started in ED--> continue Right hip pain s/p Fall * Risk factors: Uses walker, generalized weakness, confusion * Unwitnessed fall x 2 * Hip Xray in ED negative for acute injury * Consider CT hip if no improvement * Pain management PRN * PT/OT consult Increased Confusion * Risk factor: h/o Dementia, UTI * DUST CONTROL ENGINEER cognitive consult * Monitor Generalized Weakness * 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 Osman Telles
[2018-06-14] MEDS ORDERED: OMEPRAZOLE 20 MG PO SCH (11:30)
[2018-06-14] MEDS: Sertraline 50 MG Tab PO SCH (20:20)
[2018-06-15] MEDS: cefTRIAXone 2 GM in Sodium Chloride 0.9% 100 ML IV SCH (05:22)
[2018-06-15] MEDS: Furosemide 20 MG Tab PO SCH ×2 (05:24→15:23)
[2018-06-15] MEDS: Pantoprazole 40 MG Tab.CR PO SCH (06:11)
--- NOTE | 2018-06-15 07:51 | PCM.PN ---
- General Info Date of Service: 06/15/18 Admission Dx/Problem (Free Text): Admission Diagnosis/Problem Admission Diagnosis/Problem UTI, Urinary tract infectious disease Subjective Update: In to see Han. He is sitting in a chair. He is doing well today and has no new complaints. He states he still has some right hip pain, but that it is chronic from sciatica and is "made worse every time I fall". He no longer has pain with urination and clinically looks to be feeling much better. No concerns from nursing. Per , he has been accepted to [facility] when ready for D/C. Still awaiting Urine culture results- will continue Rocephin for now. Functional Status: Reports: Pain Controlled, Tolerating Diet, Ambulating, Urinating - Review of Systems General: Reports: Weakness. Denies: Fever, Chills HEENT: Reports: No Symptoms Pulmonary: Reports: No Symptoms. Denies: Shortness of Breath, Cough Cardiovascular: Reports: No Symptoms. Denies: Chest Pain Gastrointestinal: Reports: No Symptoms. Denies: Abdominal Pain, Diarrhea, Nausea, Vomiting Genitourinary: Reports: No Symptoms. Denies: Dysuria, Frequency, Burning, Pain , Urgency Musculoskeletal: Reports: Joint Pain (R hip, chronic per pt) Skin: Reports: No Symptoms Neurological: Reports: Confusion, Difficulty Walking, Weakness, Gait Disturbance Psychiatric: Reports: Confusion - Patient Data Vitals - Most Recent: Last Vital Signs Temp 97.9 F 06/15/18 07:12 Pulse 65 06/15/18 07:12 Resp 18 06/15/18 07:12 BP 140/65 06/15/18 07:12 Pulse Ox 95 06/15/18 07:12 Weight - Most Recent: 154 lb I&O - Last 24 Hours: Intake & Output 06/14/18 06/15/18 06/15/18 22:59 06:59 14:59 Intake Total 1030 300 Output Total 650 1000 Balance 380 -700 Lab Results Last 24 Hours: Laboratory Results - last 24 hr 06/14/18 06/15/18 06/15/18 Range/Units 06:40 05:44 05:44 WBC 5.20 (4.23-9.07) K/mm3 RBC 4.59 L (4.63-6.08) M/mm3 Hgb 13.2 L (13.7-17.5) gm/L Hct 39.6 L (40.1-51.0) % MCV 86.3 (79.0-92.2) fl MCH 28.8 (25.7-32.2) pg MCHC 33.3 (32.2-35.5) g/dl RDW Std Deviation 44.7 H (35.1-43.9) fL Plt Count 151 L (163-337) K/mm3 MPV 11.0 (9.4-12.3) fl Neut % (Auto) 67.5 (34.0-67.9) % Lymph % (Auto) 17.1 L (21.8-53.1) % [place] % (Auto) 11.5 (5.3-12.2) % Eos % (Auto) 3.5 (0.8-7.0) Baso % (Auto) 0.4 (0.1-1.2) % Neut # (Auto) 3.51 (1.78-5.38) K/mm3 Lymph # (Auto) 0.89 L (1.32-3.57) K/mm3 [place] # (Auto) 0.60 (0.30-0.82) K/mm3 Eos # (Auto) 0.18 (0.04-0.54) K/mm3 Baso # (Auto) 0.02 (0.01-0.08) K/mm3 Sodium 139 139 (136-145) mEq/L Potassium 3.9 4.1 (3.5-5.1) mEq/L Chloride 106 105 (98-107) mEq/L Carbon Dioxide 27 28 (21-32) mEq/L Anion Gap 9.9 10.1 (5-15) BUN 17 19 H (7-18) mg/dL Creatinine 1.0 1.1 (0.7-1.3) mg/dL Est Cr Clr Drug Dosing 54.84 49.39 mL/min Estimated GFR (MDRD) > 60 > 60 (>60) mL/min BUN/Creatinine Ratio 17.0 17.3 (14-18) Glucose 105 104 (83-115) mg/dL Calcium 8.7 8.9 (8.5-10.1) mg/dL Magnesium 1.8 1.9 (1.8-2.4) mg/dl C-Reactive Protein 2.7 H* 0.8 (<1.0) mg/dL Med Orders - Current: Current Medications Acetaminophen (Tylenol) 650 mg PO Q4H PRN PRN Reason: Pain (Mild 1-3)/fever Hydrocodone Bitart/Acetaminophen ([place] 325-5 Mg) 1 tab PO Q4H PRN PRN Reason: Pain (moderate 4-6) Albuterol (Proventil Neb Soln) 2.5 mg NEB Q2H PRN PRN Reason: Shortness Of Breath/wheezing Albuterol/Ipratropium (Duoneb 3.0-0.5 Mg/3 Ml) 3 ml NEB Q4H PRN PRN Reason: Shortness Of Breath/wheezing Bisacodyl (Dulcolax) 5 mg PO DAILY PRN PRN Reason: Constipation Docusate Sodium (Colace) 100 mg PO BID PRN PRN Reason: Constipation Enoxaparin Sodium (Lovenox) 40 mg SUBCUT DAILY [facility] Last Admin: 06/14/18 09:02 Dose: 40 mg Furosemide (Lasix) 10 mg PO BID@0600,1600 [facility] Last Admin: 06/15/18 05:24 Dose: 10 mg Hydralazine HCl (Apresoline) 10 mg IVPUSH Q4H PRN PRN Reason: Hypertension Hydromorphone HCl (Dilaudid) 0.25 mg IVPUSH Q2H PRN PRN Reason: Pain (severe 7-10) Ceftriaxone Sodium 2 gm/ (Sodium Chloride) 100 mls @ 200 mls/hr IV Q24H [facility] Last Admin: 06/15/18 05:22 Dose: 200 mls/hr Magnesium Hydroxide (Milk Of Magnesia) 30 ml PO Q12H PRN PRN Reason: Constipation Ondansetron HCl (Zofran Odt) 4 mg PO Q4H PRN PRN Reason: nausea, able to take PO Ondansetron HCl (Zofran) 4 mg IV Q4H PRN PRN Reason: Nausea/Vomiting Pantoprazole Sodium (Protonix) 40 mg PO DAILY@0700 [facility] Last Admin: 06/15/18 06:11 Dose: 40 mg Polyethylene Glycol (Miralax) 17 gm PO DAILY PRN PRN Reason: Constipation Saccharomyces Boulardii (Florastor) 250 mg PO BID [facility] Last Admin: 06/14/18 20:20 Dose: 250 mg Senna/Docusate Sodium (Senna Plus) 1 tab PO BID PRN PRN Reason: Constipation Sertraline HCl (Zoloft) 50 mg PO BEDTIME [facility] Last Admin: 06/14/18 20:20 Dose: 50 mg Sodium Chloride (Saline Flush) 10 ml FLUSH ASDIRECTED PRN PRN Reason: Keep Vein Open Last Admin: 06/13/18 03:41 Dose: 10 ml Temazepam (Restoril) 7.5 mg PO BEDTIME PRN PRN Reason: Sleep Discontinued Medications Ceftriaxone Sodium (Rocephin) 2 gm IVPUSH Q24H [facility] Last Admin: 06/13/18 16:44 Dose: Not Given Famotidine (Pepcid) 20 mg PO BID [facility] Furosemide (Lasix) 10 mg PO BID [facility] Last Admin: 06/13/18 16:50 Dose: Not Given Sodium Chloride (Normal Saline) 1,000 mls @ 125 mls/hr IV ASDIRECTED [facility] Last Admin: 06/13/18 03:40 Dose: 125 mls/hr Ceftriaxone Sodium 2 gm/ (Sodium Chloride) 100 mls @ 200 mls/hr IV ONETIME ONE Stop: 06/13/18 06:25 Last Admin: 06/13/18 06:09 Dose: 200 mls/hr Omeprazole 20 Mg 0 each PO ACBREAKFAST [facility] Sertraline HCl (Zoloft) 50 mg PO BEDTIME [facility] - Exam Quality Assessment: DVT Prophylaxis General: Alert, Oriented, Cooperative, No Acute Distress HEENT: Pupils Equal, Pupils Reactive, EOMI, Mucous Membr. Moist/[place] Neck: Supple Lungs: Clear to Auscultation, Normal Respiratory Effort Cardiovascular: Regular Rate, Regular Rhythm GI/Abdominal Exam: Normal Bowel Sounds, Soft, Non-Tender, No Organomegaly, No Distention, No Abnormal Bruit, No Mass, Pelvis Stable (Male) Exam: Deferred Back Exam: Normal Inspection Extremities: Normal Inspection, No Pedal Edema, Normal Capillary Refill, Limited Range of Motion (R hip s/p fall), Other (R hip TTP s/p fall) Peripheral Pulses: 2+: Posterior Tibial (L), Posterior Tibial (R), Dorsalis Pedis (L), Dorsalis Pedis (R) Skin: Warm, Dry, Intact Neurological: No New Focal Deficit Psy/Mental Status: Alert - Problem List & Annotations (1) Chronic low back pain SNOMED Code(s): 103856563 Code(s): M54.5 - LOW BACK PAIN; G89.29 - OTHER CHRONIC PAIN Status: Chronic Priority: Low Current Visit: Yes Qualifiers: Back pain laterality: right Sciatica presence: with sciatica Sciatica laterality: sciatica of right side Qualified Code(s): M54.41 - Lumbago with sciatica, right side; G89.29 - Other chronic pain (2) Confusion and disorientation SNOMED Code(s): 54101222, 88895028 Code(s): R41.0 - DISORIENTATION, UNSPECIFIED Status: Acute Priority: High Current Visit: Yes (3) Contusion of right hip SNOMED Code(s): 30055005 Code(s): S70.01XA - CONTUSION OF RIGHT HIP, INITIAL ENCOUNTER Status: Acute Priority: High Current Visit: Yes Qualifiers: Encounter type: initial encounter Qualified Code(s): S70.01XA - Contusion of right hip, initial encounter (4) Falls frequently SNOMED Code(s): 334834698 Code(s): R29.6 - REPEATED FALLS Status: Acute Priority: High Current Visit: Yes (5) Generalized weakness SNOMED Code(s): 17922734 Code(s): R53.1 - WEAKNESS Status: Acute Priority: High Current Visit: Yes (6) Sciatica SNOMED Code(s): 32374978 Code(s): M54.30 - SCIATICA, UNSPECIFIED SIDE Status: Chronic Priority: Low Current Visit: Yes Qualifiers: Laterality: right Qualified Code(s): M54.31 - Sciatica, right side (7) Syncope SNOMED Code(s): 993129931 Code(s): R55 - SYNCOPE AND COLLAPSE Status: Acute Priority: High Current Visit: Yes Qualifiers: Syncope type: unspecified Qualified Code(s): R55 - Syncope and collapse (8) UTI (urinary tract infection) SNOMED Code(s): 77611803 Code(s): N39.0 - URINARY TRACT INFECTION, SITE NOT SPECIFIED Status: Acute Priority: High Current Visit: Yes Qualifiers: Urinary tract infection type: acute cystitis Hematuria presence: without hematuria Qualified Code(s): N30.00 - Acute cystitis without hematuria - Problem List Review Problem List Initiated/Reviewed/Updated: Yes - My Orders Last 24 Hours: My Active Orders 06/14/18 07:00 Pantoprazole [ProTONIX] 40 mg PO DAILY@0700 06/14/18 09:00 Enoxaparin [Lovenox] 40 mg SUBCUT DAILY 06/16/18 05:11 BASIC METABOLIC PANEL,BMP [CHEM] AM C-REACTIVE PROTEIN [CHEM] AM CBC WITH AUTO DIFF [HEME] AM MAGNESIUM [CHEM] AM 06/17/18 05:11 BASIC METABOLIC PANEL,BMP [CHEM] AM C-REACTIVE PROTEIN [CHEM] AM CBC WITH AUTO DIFF [HEME] AM MAGNESIUM [CHEM] AM 06/18/18 05:11 BASIC METABOLIC PANEL,BMP [CHEM] AM C-REACTIVE PROTEIN [CHEM] AM CBC WITH AUTO DIFF [HEME] AM MAGNESIUM [CHEM] AM - Plan Plan:: Assessment/Plan: Acute: UTI, Improving * Pain and difficulty urinating * No leukocytosis, CRP 3--> 2.7--> 0.8 * UA in ED impressive for UTI * Urine culture pending * Rocephin started in ED--> continue Right hip pain s/p Fall * Risk factors: Uses walker, generalized weakness, confusion * Unwitnessed fall x 2 * Hip Xray in ED negative for acute injury * Consider CT hip if no improvement * Pain management PRN * PT/OT consult Increased Confusion * Risk factor: h/o Dementia, UTI * RISK COMPLIANCE ANALYST cognitive consult * Monitor Generalized Weakness * 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 Osman Telles Has been accepted to [facility]
[2018-06-15] MEDS: Saccharomyces Boulardii (Probiotic) 250 MG Cap PO SCH ×2 (09:03→20:54)
[2018-06-15] MEDS: Enoxaparin 40 MG/0.4 ML Syringe SUBCUT SCH (09:03)
--- NOTE | 2018-06-15 11:51 | PCM.DCSUM1 ---
<Esther Fonseca T - Last Filed: 06/16/18 10:29> Discharge Summary - Hospital Course Modified [place] Scale: Sev.Disablility Bedridden,Incont.&Require Constant Nrsg.Care/Attention Modified [place] Scale Score: 5 - Discharge Data Discharge Disposition: DC/Tfer to SNF 03 Condition: Good - Discharge Diagnosis/Problem(s) (1) Confusion and disorientation SNOMED Code(s): 85294975, 19630032 ICD Code: R41.0 - DISORIENTATION, UNSPECIFIED Status: Resolved Priority: High (2) Contusion of right hip SNOMED Code(s): 65314853 ICD Code: S70.01XA - CONTUSION OF RIGHT HIP, INITIAL ENCOUNTER Status: Acute Priority: High Qualifiers: Encounter type: initial encounter Qualified Code(s): S70.01XA - Contusion of right hip, initial encounter (3) Falls frequently SNOMED Code(s): 540042754 ICD Code: R29.6 - REPEATED FALLS Status: Chronic Priority: High (4) Generalized weakness SNOMED Code(s): 72501040 ICD Code: R53.1 - WEAKNESS Status: Chronic Priority: High (5) Chronic low back pain SNOMED Code(s): 700756188 ICD Code: M54.5 - LOW BACK PAIN; G89.29 - OTHER CHRONIC PAIN Status: Chronic Priority: Low Qualifiers: Back pain laterality: right Sciatica presence: with sciatica Sciatica laterality: sciatica of right side Qualified Code(s): M54.41 - Lumbago with sciatica, right side; G89.29 - Other chronic pain (6) Sciatica SNOMED Code(s): 63077118 ICD Code: M54.30 - SCIATICA, UNSPECIFIED SIDE Status: Chronic Priority: Low Qualifiers: Laterality: right Qualified Code(s): M54.31 - Sciatica, right side - Patient Summary/Data Consults: Consultations 06/13/18 10:50 STRA[employer]ENER AND ALIGNER Evaluation and Treatment [CONS] Routine 06/13/18 10:51 Consult to Case Management/Insulation Blower [CONS] Routine OT Evaluation and Treatment [CONS] Routine PT Evaluation and Treatment [CONS] Routine 06/14/18 14:16 Consult to Speech Language Pathology [STRAIGHTENER AND ALIGNER Evaluation and Treatment] [CONS] Routine Hospital Course: Patient has no UTI. His UA sample was contaminated. - Discharge Plan Home Medications: Home Meds Omeprazole [Prilosec] 20 mg PO DAILY 08/31/15 [History] Sertraline HCl 50 mg PO BEDTIME 08/31/15 [History] Polyethylene Glycol 3350 [MiraLAX] 17 gm PO DAILY 07/10/17 [History] Furosemide 10 mg PO BID 06/13/18 [History] Patient Handouts: Fall Prevention in the Home, [id number], Confusion, Weakness, [id number], Sciatica, [id number], Chronic Back Pain Referrals: Israel Leonard MD [Physician] - (Please see PCP in 7-10 days ) - Discharge Summary/Plan Comment Discharge Summary/Plan Comment: Discharge to local [place] - General Info Date of Service: 06/16/18 Subjective Update: Follow up Functional Status: Reports: Pain Controlled, Tolerating Diet, Ambulating, Urinating. Denies: New Symptoms - Review of Systems General: Denies: Fever, Fatigue, Malaise, Chills HEENT: Reports: No Symptoms Pulmonary: Denies: Shortness of Breath Cardiovascular: Denies: Chest Pain, Dyspnea on Exertion, Lightheadedness Gastrointestinal: Denies: Abdominal Pain, Decreased Appetite, Diarrhea, Vomiting Genitourinary: Reports: Incontinence Musculoskeletal: Reports: No Symptoms Skin: Reports: Bruising Neurological: Reports: Confusion (baseline), Difficulty Walking (mild), Weakness (baseline), Gait Disturbance (baseline) Psychiatric: Denies: Depression, Anxiety, Agitation, Hallucinations Systems Review Comment: No overnight or acute issues. He rested well last night and has no complaints this AM. - Patient Data Vitals - Most Recent: Last Vital Signs Temp 36.7 C 06/16/18 07:32 Pulse 76 06/16/18 07:32 Resp 16 06/16/18 07:32 BP 149/73 H 06/16/18 07:32 Pulse Ox 96 06/16/18 07:32 I&O - Last 24 hours: Intake & Output 06/15/18 06/16/18 06/16/18 22:59 06:59 14:59 Intake Total 1060 300 Output Total 850 700 Balance 210 -400 Lab Results - Last 24 hrs: Laboratory Results - last 24 hr 06/16/18 06/16/18 Range/Units 05:40 05:40 WBC 4.58 (4.23-9.07) K/mm3 RBC 4.54 L (4.63-6.08) M/mm3 Hgb 13.0 L (13.7-17.5) gm/L Hct 39.2 L (40.1-51.0) % MCV 86.3 (79.0-92.2) fl MCH 28.6 (25.7-32.2) pg MCHC 33.2 (32.2-35.5) g/dl RDW Std Deviation 44.4 H (35.1-43.9) fL Plt Count 163 (163-337) K/mm3 MPV 10.8 (9.4-12.3) fl Neut % (Auto) 66.2 (34.0-67.9) % Lymph % (Auto) 18.1 L (21.8-53.1) % [place] % (Auto) 11.6 (5.3-12.2) % Eos % (Auto) 3.7 (0.8-7.0) Baso % (Auto) 0.4 (0.1-1.2) % Neut # (Auto) 3.03 (1.78-5.38) K/mm3 Lymph # (Auto) 0.83 L (1.32-3.57) K/mm3 [place] # (Auto) 0.53 (0.30-0.82) K/mm3 Eos # (Auto) 0.17 (0.04-0.54) K/mm3 Baso # (Auto) 0.02 (0.01-0.08) K/mm3 Sodium 140 (136-145) mEq/L Potassium 3.9 (3.5-5.1) mEq/L Chloride 105 (98-107) mEq/L Carbon Dioxide 28 (21-32) mEq/L Anion Gap 10.9 (5-15) BUN 23 H (7-18) mg/dL Creatinine 1.2 (0.7-1.3) mg/dL Est Cr Clr Drug Dosing 44.82 mL/min Estimated GFR (MDRD) 58 (>60) mL/min BUN/Creatinine Ratio 19.2 H (14-18) Glucose 99 (83-115) mg/dL Calcium 8.8 (8.5-10.1) mg/dL Magnesium 1.9 (1.8-2.4) mg/dl C-Reactive Protein 2.0 H* (<1.0) mg/dL MJ Results - Last 24 hrs: Microbiology 06/13/18 04:30 Urine Culture - Preliminary Urine, Bladder Gram Positive Cocci Gram Positive Cocci#2 Med Orders - Current: Current Medications Acetaminophen (Tylenol) 650 mg PO Q4H PRN PRN Reason: Pain (Mild 1-3)/fever Hydrocodone Bitart/Acetaminophen ([place] 325-5 Mg) 1 tab PO Q4H PRN PRN Reason: Pain (moderate 4-6) Albuterol (Proventil Neb Soln) 2.5 mg NEB Q2H PRN PRN Reason: Shortness Of Breath/wheezing Albuterol/Ipratropium (Duoneb 3.0-0.5 Mg/3 Ml) 3 ml NEB Q4H PRN PRN Reason: Shortness Of Breath/wheezing Bisacodyl (Dulcolax) 5 mg PO DAILY PRN PRN Reason: Constipation Docusate Sodium (Colace) 100 mg PO BID PRN PRN Reason: Constipation Enoxaparin Sodium (Lovenox) 40 mg SUBCUT DAILY [facility] Last Admin: 06/15/18 09:03 Dose: 40 mg Furosemide (Lasix) 10 mg PO BID@0600,1600 [facility] Last Admin: 06/16/18 05:58 Dose: 10 mg Hydralazine HCl (Apresoline) 10 mg IVPUSH Q4H PRN PRN Reason: Hypertension Hydromorphone HCl (Dilaudid) 0.25 mg IVPUSH Q2H PRN PRN Reason: Pain (severe 7-10) Ceftriaxone Sodium 2 gm/ (Sodium Chloride) 100 mls @ 200 mls/hr IV Q24H [facility] Last Admin: 06/16/18 05:57 Dose: 200 mls/hr Magnesium Hydroxide (Milk Of Magnesia) 30 ml PO Q12H PRN PRN Reason: Constipation Ondansetron HCl (Zofran Odt) 4 mg PO Q4H PRN PRN Reason: nausea, able to take PO Ondansetron HCl (Zofran) 4 mg IV Q4H PRN PRN Reason: Nausea/Vomiting Pantoprazole Sodium (Protonix) 40 mg PO DAILY@0700 [facility] Last Admin: 06/16/18 06:00 Dose: 40 mg Polyethylene Glycol (Miralax) 17 gm PO DAILY PRN PRN Reason: Constipation Saccharomyces Boulardii (Florastor) 250 mg PO BID [facility] Last Admin: 06/15/18 20:54 Dose: 250 mg Senna/Docusate Sodium (Senna Plus) 1 tab PO BID PRN PRN Reason: Constipation Sertraline HCl (Zoloft) 50 mg PO BEDTIME [facility] Last Admin: 06/15/18 20:54 Dose: 50 mg Sodium Chloride (Saline Flush) 10 ml FLUSH ASDIRECTED PRN PRN Reason: Keep Vein Open Last Admin: 06/13/18 03:41 Dose: 10 ml Temazepam (Restoril) 7.5 mg PO BEDTIME PRN PRN Reason: Sleep Discontinued Medications Ceftriaxone Sodium (Rocephin) 2 gm IVPUSH Q24H [facility] Last Admin: 06/13/18 16:44 Dose: Not Given Famotidine (Pepcid) 20 mg PO BID [facility] Furosemide (Lasix) 10 mg PO BID [facility] Last Admin: 06/13/18 16:50 Dose: Not Given Sodium Chloride (Normal Saline) 1,000 mls @ 125 mls/hr IV ASDIRECTED [facility] Last Admin: 06/13/18 03:40 Dose: 125 mls/hr Ceftriaxone Sodium 2 gm/ (Sodium Chloride) 100 mls @ 200 mls/hr IV ONETIME ONE Stop: 06/13/18 06:25 Last Admin: 06/13/18 06:09 Dose: 200 mls/hr Omeprazole 20 Mg 0 each PO ACBREAKFAST [facility] Sertraline HCl (Zoloft) 50 mg PO BEDTIME [facility] - Exam General: Reports: Alert, Cooperative, No Acute Distress HEENT: Reports: Pupils Equal, Pupils Reactive, Mucous Membr. Moist/[place] Neck: Reports: Supple Lungs: Reports: Clear to Auscultation, Normal Respiratory Effort Cardiovascular: Reports: Regular Rate, Regular Rhythm GI/Abdominal Exam: Normal Bowel Sounds, Soft, Non-Tender, No Organomegaly, No Distention, No Abnormal Bruit (Male) Exam: Deferred Rectal (Males) Exam: Deferred Back Exam: Reports: Normal Inspection, Decreased Range of Motion Extremities: Normal Inspection, Normal Range of Motion, Non-Tender, No Pedal Edema, Normal Capillary Refill Skin: Reports: Warm, Dry, Intact Neurological: Reports: No New Focal Deficit (limited but grossly intact). Denies: Normal Gait Psy/Mental Status: Reports: Alert, Normal Affect, Normal Mood <Maral Floyd - Last Filed: 06/16/18 15:13> Discharge Summary - Hospital Course HPI Initial Comments: The patient presents from [place] for a fall and confusion. The patient just moved into [place] 6 months ago. His has noticed a steady decline. He is more confused and has generalized weakness. His is having to help him more with getting around their apartment and [place]. He has a history of right low back pain with right sided sciatica. He was going to have surgery 10 years ago on his back but he decided to wait. In 2017, he saw Dr Montano and he was going to do surgery but the patient got an infection and they could not do the surgery. His thinks he is not a candidate anymore. He did fall yesterday. His thinks he passed out when he was at the TV trying to turn it on. He was out for just a few seconds. He did land on his right hip and he has some pain with it. This evening he was trying to get up to go to the bathroom. He got caught up in his walker and he fell into the closet. His did not hear him because she stays in a different room. He alerted staff that came to help. He has right hip pain from the fall yesterday but today made it worse. He could walk on it somewhat yesterday. He did not hit his head or hurt his neck. He is having trouble urinating. It takes him awhile to go. He says it hurts when he urinates. He has no fever, chills, cough, congestion or runny nose. He has no chest pain or shortness of breath. Onset: Gradual Diagnosis: Stroke: No - Discharge Data Discharge Date: 06/16/18 (ADMIT 06/13/18) - Discharge Diagnosis/Problem(s) (1) Chronic low back pain SNOMED Code(s): 920016732 ICD Code: M54.5 - LOW BACK PAIN; G89.29 - OTHER CHRONIC PAIN Status: Chronic Priority: Low Qualifiers: Back pain laterality: right Sciatica presence: with sciatica Sciatica laterality: sciatica of right side Qualified Code(s): M54.41 - Lumbago with sciatica, right side; G89.29 - Other chronic pain (2) Confusion and disorientation SNOMED Code(s): 21236237, 17977208 ICD Code: R41.0 - DISORIENTATION, UNSPECIFIED Status: Resolved Priority: High (3) Contusion of right hip SNOMED Code(s): 39407423 ICD Code: S70.01XA - CONTUSION OF RIGHT HIP, INITIAL ENCOUNTER Status: Acute Priority: High Qualifiers: Encounter type: initial encounter Qualified Code(s): S70.01XA - Contusion of right hip, initial encounter (4) Falls frequently SNOMED Code(s): 693092734 ICD Code: R29.6 - REPEATED FALLS Status: Chronic Priority: High (5) Generalized weakness SNOMED Code(s): 93092604 ICD Code: R53.1 - WEAKNESS Status: Chronic Priority: High (6) Sciatica SNOMED Code(s): 20506394 ICD Code: M54.30 - SCIATICA, UNSPECIFIED SIDE Status: Chronic Priority: Low Qualifiers: Laterality: right Qualified Code(s): M54.31 - Sciatica, right side (7) Syncope SNOMED Code(s): 409005986 ICD Code: R55 - SYNCOPE AND COLLAPSE Status: Acute Priority: High Qualifiers: Syncope type: unspecified Qualified Code(s): R55 - Syncope and collapse (8) UTI (urinary tract infection) SNOMED Code(s): 67841450 ICD Code: N39.0 - URINARY TRACT INFECTION, SITE NOT SPECIFIED Status: Acute Priority: High Qualifiers: Urinary tract infection type: acute cystitis Hematuria presence: without hematuria Qualified Code(s): N30.00 - Acute cystitis without hematuria - Patient Summary/Data Operative Procedure(s) Performed: none Complications: none Consults: Consultations 06/13/18 10:50 STRAIGHTENER AND ALIGNER Evaluation and Treatment [CONS] Routine 06/13/18 10:51 Consult to Case Management/Insulation Blower [CONS] Routine OT Evaluation and Treatment [CONS] Routine PT Evaluation and Treatment [CONS] Routine 06/14/18 14:16 Consult to Speech Language Pathology [STRAIGHTENER AND ALIGNER Evaluation and Treatment] [CONS] Routine Labs Pending at D/C: none Recommended Follow-up Testing/Procedures: F/U with PCP in 7-10 days Planned Operative Procedure(s) after DC: none Hospital Course: Assessment/Plan: Acute: UTI, Improving * Pain and difficulty urinating * No leukocytosis, CRP 3--> 2.7--> 0.8 * UA in ED impressive for UTI * Urine culture pending * Rocephin started in ED--> D/C at discharge; 3 days of treatment total * Educated on cleaning meatus/foreskin; recommend 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 Osman Telles From [facility] [place] with spouse D/C [facility] Han did well here after being admitted for UTI, increased confusion and R hip pain s/p fall. He was treated with Rocephin x 3 days for completion of treatment of UTI. It is recommended that [facility] help him clean the meatus/ foreskin to help prevent future UTI. His hip XR was negative for acute injury, and he states his pain is now back to baseline (h/o sciatica). Due to his increasing confusion and weakness, his is having difficulty taking care of him. PT recommends continued therapy. He has been accepted to [facility] and will be D/C'd there today. - Patient Instructions Diet: Heart Healthy Diet Activity: As Tolerated Driving: Do Not Drive Showering/Bathing: May Shower Notify Provider of: Fever, Increased Pain, Nausea and/or Vomiting - Discharge Plan *PRESCRIPTION DRUG MONITORING PROGRAM REVIEWED*: Not Applicable *COPY OF PRESCRIPTION DRUG MONITORING REPORT IN PATIENT LUIS FERNANDO: Not Applicable - Discharge Summary/Plan Comment DC Time >30 min.: Yes (40) - General Info Admission Dx/Problem (Free Text: Admission Diagnosis/Problem Admission Diagnosis/Problem UTI, Urinary tract infectious disease - Patient Data Vitals - Most Recent: Last Vital Signs Temp 97.9 F 06/15/18 07:12 Pulse 65 06/15/18 07:12 Resp 18 06/15/18 07:12 BP 140/65 06/15/18 07:12 Pulse Ox 95 06/15/18 07:12 Weight - Most Recent: 154 lb I&O - Last 24 hours: Intake & Output 06/14/18 06/15/18 06/15/18 22:59 06:59 14:59 Intake Total 1030 300 420 Output Total 650 1000 Balance 380 -700 420 Lab Results - Last 24 hrs: Laboratory Results - last 24 hr 06/15/18 06/15/18 Range/Units 05:44 05:44 WBC 5.20 (4.23-9.07) K/mm3 RBC 4.59 L (4.63-6.08) M/mm3 Hgb 13.2 L (13.7-17.5) gm/L Hct 39.6 L (40.1-51.0) % MCV 86.3 (79.0-92.2) fl MCH 28.8 (25.7-32.2) pg MCHC 33.3 (32.2-35.5) g/dl RDW Std Deviation 44.7 H (35.1-43.9) fL Plt Count 151 L (163-337) K/mm3 MPV 11.0 (9.4-12.3) fl Neut % (Auto) 67.5 (34.0-67.9) % Lymph % (Auto) 17.1 L (21.8-53.1) % [place] % (Auto) 11.5 (5.3-12.2) % Eos % (Auto) 3.5 (0.8-7.0) Baso % (Auto) 0.4 (0.1-1.2) % Neut # (Auto) 3.51 (1.78-5.38) K/mm3 Lymph # (Auto) 0.89 L (1.32-3.57) K/mm3 [place] # (Auto) 0.60 (0.30-0.82) K/mm3 Eos # (Auto) 0.18 (0.04-0.54) K/mm3 Baso # (Auto) 0.02 (0.01-0.08) K/mm3 Sodium 139 (136-145) mEq/L Potassium 4.1 (3.5-5.1) mEq/L Chloride 105 (98-107) mEq/L Carbon Dioxide 28 (21-32) mEq/L Anion Gap 10.1 (5-15) BUN 19 H (7-18) mg/dL Creatinine 1.1 (0.7-1.3) mg/dL Est Cr Clr Drug Dosing 49.39 mL/min Estimated GFR (MDRD) > 60 (>60) mL/min BUN/Creatinine Ratio 17.3 (14-18) Glucose 104 (83-115) mg/dL Calcium 8.9 (8.5-10.1) mg/dL Magnesium 1.9 (1.8-2.4) mg/dl C-Reactive Protein 0.8 (<1.0) mg/dL Med Orders - Current: Current Medications Acetaminophen (Tylenol) 650 mg PO Q4H PRN PRN Reason: Pain (Mild 1-3)/fever Hydrocodone Bitart/Acetaminophen ([place] 325-5 Mg) 1 tab PO Q4H PRN PRN Reason: Pain (moderate 4-6) Albuterol (Proventil Neb Soln) 2.5 mg NEB Q2H PRN PRN Reason: Shortness Of Breath/wheezing Albuterol/Ipratropium (Duoneb 3.0-0.5 Mg/3 Ml) 3 ml NEB Q4H PRN PRN Reason: Shortness Of Breath/wheezing Bisacodyl (Dulcolax) 5 mg PO DAILY PRN PRN Reason: Constipation Docusate Sodium (Colace) 100 mg PO BID PRN PRN Reason: Constipation Enoxaparin Sodium (Lovenox) 40 mg SUBCUT DAILY [facility] Last Admin: 06/15/18 09:03 Dose: 40 mg Furosemide (Lasix) 10 mg PO BID@0600,1600 [facility] Last Admin: 06/15/18 05:24 Dose: 10 mg Hydralazine HCl (Apresoline) 10 mg IVPUSH Q4H PRN PRN Reason: Hypertension Hydromorphone HCl (Dilaudid) 0.25 mg IVPUSH Q2H PRN PRN Reason: Pain (severe 7-10) Ceftriaxone Sodium 2 gm/ (Sodium Chloride) 100 mls @ 200 mls/hr IV Q24H [facility] Last Admin: 06/15/18 05:22 Dose: 200 mls/hr Magnesium Hydroxide (Milk Of Magnesia) 30 ml PO Q12H PRN PRN Reason: Constipation Ondansetron HCl (Zofran Odt) 4 mg PO Q4H PRN PRN Reason: nausea, able to take PO Ondansetron HCl (Zofran) 4 mg IV Q4H PRN PRN Reason: Nausea/Vomiting Pantoprazole Sodium (Protonix) 40 mg PO DAILY@0700 [facility] Last Admin: 06/15/18 06:11 Dose: 40 mg Polyethylene Glycol (Miralax) 17 gm PO DAILY PRN PRN Reason: Constipation Saccharomyces Boulardii (Florastor) 250 mg PO BID [facility] Last Admin: 06/15/18 09:03 Dose: 250 mg Senna/Docusate Sodium (Senna Plus) 1 tab PO BID PRN PRN Reason: Constipation Sertraline HCl (Zoloft) 50 mg PO BEDTIME [facility] Last Admin: 06/14/18 20:20 Dose: 50 mg Sodium Chloride (Saline Flush) 10 ml FLUSH ASDIRECTED PRN PRN Reason: Keep Vein Open Last Admin: 06/13/18 03:41 Dose: 10 ml Temazepam (Restoril) 7.5 mg PO BEDTIME PRN PRN Reason: Sleep Discontinued Medications Ceftriaxone Sodium (Rocephin) 2 gm IVPUSH Q24H [facility] Last Admin: 06/13/18 16:44 Dose: Not Given Famotidine (Pepcid) 20 mg PO BID [facility] Furosemide (Lasix) 10 mg PO BID [facility] Last Admin: 06/13/18 16:50 Dose: Not Given Sodium Chloride (Normal Saline) 1,000 mls @ 125 mls/hr IV ASDIRECTED [facility] Last Admin: 06/13/18 03:40 Dose: 125 mls/hr Ceftriaxone Sodium 2 gm/ (Sodium Chloride) 100 mls @ 200 mls/hr IV ONETIME ONE Stop: 06/13/18 06:25 Last Admin: 06/13/18 06:09 Dose: 200 mls/hr Omeprazole 20 Mg 0 each PO ACBREAKFAST [facility] Sertraline HCl (Zoloft) 50 mg PO BEDTIME [facility]
[2018-06-15] MEDS: Sertraline 50 MG Tab PO SCH (20:54)
[2018-06-16] MEDS: cefTRIAXone 2 GM in Sodium Chloride 0.9% 100 ML IV SCH (05:57)
[2018-06-16] MEDS: Furosemide 20 MG Tab PO SCH (05:58)
[2018-06-16] MEDS: Pantoprazole 40 MG Tab.CR PO SCH (06:00)
[2018-06-16 08:17] VITALS: BP 149/73
[2018-06-16] MEDS: Saccharomyces Boulardii (Probiotic) 250 MG Cap PO SCH (09:30)
[2018-06-16] MEDS: Enoxaparin 40 MG/0.4 ML Syringe SUBCUT SCH (09:31)
== END 2018-06-16 10:58 | DRG 690 ==
LOC: JD.ED 03:07 → JD.MS 07:10 → JD.ED 07:20 → OBSVTOIN 07:41
PROVIDERS: ADMIT Internal Medicine; ATTEND Internal Medicine
DX: N30.00 Acute cystitis without hematuria (principal); S70.01XA Contusion of right hip, initial encounter; R55 Syncope and collapse; M54.41 Lumbago with sciatica, right side; W18.30XA Fall on same level, unspecified, initial encounter; K59.09 Other constipation; G89.29 Other chronic pain; F03.90 Unspecified dementia, unspecified severity, without behavioral disturbance, psychotic disturbance, mood disturbance, and anxiety; R25.1 Tremor, unspecified; H54.7 Unspecified visual loss; R29.6 Repeated falls; F41.9 Anxiety disorder, unspecified; Z66 Do not resuscitate; Z88.0 Allergy status to penicillin; Z90.79 Acquired absence of other genital organ(s); Z87.891 Personal history of nicotine dependence; M54.9 Dorsalgia, unspecified; M25.551 Pain in right hip; R30.9 Painful micturition, unspecified; R53.1 Weakness; R41.0 Disorientation, unspecified; Z79.899 Other long term (current) drug therapy; Z88.2 Allergy status to sulfonamides; Z85.46 Personal history of malignant neoplasm of prostate
CPT/HCPCS: 36415; 70450; 73502; 80053; 81001; 83735; 84484; 85025; 86140; 87086; 93005; 96361; 96365; 99285; J0696; J7030; J7040; 80048; 87088; 87186; 92610-GN; 93010; 96125-GN; 97110-GO; 97110-GP; 97116-GP; 97162-GP; 97166-GO; 97530-GO; 97530-GP; A9270-GY; G0515-GN; J1650

== ENCOUNTER 2021-05-30 08:00 | Emergency (ER) | payer MEDICARE, BC ==
[2021-05-30] MEDS ORDERED: Sodium Chloride 0.9% 10 ML Syringe FLUSH PRN (08:06)
--- NOTE | 2021-05-30 08:07 | EDM.PDOC ---
ED HPI GENERAL MEDICAL PROBLEM - General Chief Complaint: Neuro Symptoms/Deficits Stated Complaint: KIM AMB Time Seen by Provider: 05/30/21 08:00 Source of Information: Reports: Patient, EMS, Half-Way Records History Limitations: Reports: No Limitations - History of Present Illness INITIAL COMMENTS - FREE TEXT/NARRATIVE: 86-year-old male presents to the ED per [facility] from [facility]. The history is the nursing staff got him up at 445 hours this morning which is normal for them. He received his Lasix 10 mg dose orally. He was then placed in an easy chair and likely fell back asleep but they felt that he was obtunded and they could not awaken him. They were getting ready to take him down to breakfast when they recognized that something might be wrong around 0615 hrs. Paramedics state that he was unresponsive even on their evaluation but woke up in the ambulance and was able to converse normally. Vital signs obtained by nursing staff at the intermediate revealed a normal blood sugar I believe of 116. His O2 sats and his blood pressure also within normal limits. Patient CODE STATUS is DNR/DNI and had called in and indicated she did not want any heroic measures carried out. She wished him to be evaluated and likely return to the intermediate. Upon arrival in the emergency room he is alert oriented and able to answer all questions appropriately. He had no obvious new neurological deficits .Speech was normal with no dysarthria. Apparently he does have dysphagia and is on a thickened nectar diet. Patient has Parkinson's disease with mild dementia. Patient does not ambulate and is a complete transfer. Vital signs reveal a sinus bradycardia at 58/min. Respiratory to 16 with O2 sats of 95% room air. Blood pressure was 168/69. Patient has received all of his regular medications this morning. Of note med list indicates that he is on Aricept and other sedative medication such as gabapentin 600 mg at bedtime and Requip at bedtime as well. Onset: Today, Sudden Onset Date: 05/30/21 Onset Time: 06:15 Duration: Minutes:, Resolved Prior to Arrival Location: Reports: Other (Presents to the ED for evaluation of acute altered level of consciousness with inability to arouse him with verbal and physical stimuli at the intermediate where he resides.) Quality: Reports: Other (Patient appears to have recovered from his altered level of consciousness without any obvious neurological deficit.) Severity: Mild Improves with: Reports: Other (Cognitive function appears to be back to baseline upon presentation to the ED.) Worsens with: Reports: None Context: Reports: Other (Spontaneous altered level of consciousness with inability to arouse him verbally and physically in the intermediate while he was seated in an easy chair. No evidence of syncope. Vital signs obtained were normal with no signs of severe bradycardia or cardiac arrhythmia.). Denies: Activity, Exercise, Lifting, Sick Contact, Trauma Associated Symptoms: Reports: Malaise. 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 this morning) - Related Data Allergies Allergy/AdvReac Type Severity Reaction Status Date / Time Penicillins Allergy Rash Verified 05/30/21 08:15 Sulfa (Sulfonamide Allergy Other Verified 05/30/21 08:15 Antibiotics) Home Meds: Home Meds polyethylene glycoL 3350 [MiraLAX] 17 gm PO Q48H 07/10/17 [History] Furosemide 10 mg PO BID 06/13/18 [History] Acetaminophen [Tylenol] 650 mg PO BID PRN 05/30/21 [History] Acetaminophen [Tylenol] 650 mg PO TID 05/30/21 [History] Carbamide Peroxide [Debrox] 3 drop EARBOTH BEDTIME PRN 05/30/21 [History] Carbidopa/Levodopa [Carbidopa-Levodopa 10-100] 1 tab PO TID 05/30/21 [History] Docusate Sodium/Sennosides [Senna Plus] 2 tab PO DAILY PRN 05/30/21 [History] Donepezil HCl [Aricept] 10 mg PO DAILY 05/30/21 [History] FLUoxetine [PROzac] 40 mg PO DAILY 05/30/21 [History] Gabapentin [Neurontin] 300 mg PO DAILY 05/30/21 [History] Gabapentin [Neurontin] 600 mg PO BEDTIME 05/30/21 [History] bisacodyL [Dulcolax] 10 mg RECTAL DAILY PRN 05/30/21 [History] rOPINIRole [Requip] 1 mg PO BEDTIME 05/30/21 [History] Past Medical History HEENT History: Reports: Impaired Vision Gastrointestinal History: Reports: Chronic Constipation, GERD Genitourinary History: Reports: Prostate Disorder, Other (See Below) Other Genitourinary History: prostate sx Musculoskeletal History: Reports: Back Pain, Chronic Psychiatric History: Reports: Anxiety, Dementia Oncologic (Cancer) History: Reports: Prostate - Infectious Disease History Infectious Disease History: Reports: Chicken Pox, Measles, Mumps - Past Surgical History HEENT Surgical History: Reports: Cataract Surgery GI Surgical History: Reports: Appendectomy, Hernia, Inguinal Male Surgical History: Reports: Prostate Biopsy, Prostatectomy Social & Family History - Family History Family Medical History: No Pertinent Family History - Caffeine Use Caffeine Use: Reports: Coffee, Soda, Tea - Living Situation & Occupation Living situation: Reports: , Extended Care Facility (Currently a resident of of [facility]) Occupation: Retired ED ROS GENERAL - Review of Systems Review Of Systems: See Below Constitutional: Reports: Malaise, Fatigue (Chronically). Denies: Fever, Chills HEENT: Reports: Glasses, Other (Dysphagia and requires thickened nectar fluids) Respiratory: Reports: No Symptoms Cardiovascular: Reports: Blood Pressure Problem. Denies: Chest Pain, Claudication, Dyspnea on Exertion, Lightheadedness, Orthopnea, Palpitations, PND, Syncope, Other Endocrine: Reports: Fatigue GI/Abdominal: Reports: Constipation, Other (Apparently mild GERD) : Reports: Incontinence (Continent of urine. He is in a depends.) Musculoskeletal: Reports: Other (Patient is unable to ambulate due to lower extremity weakness. Has severe bradykinesia from Parkinson's disease.) Skin: Reports: No Symptoms Neurological: Reports: Confusion (History of mild dementia.), Tremors, Difficulty Walking (Unable to walk or ambulate.). Denies: Paresthesia, Pre- Existing Deficit, Seizure, Syncope, Tingling (Has Parkinson's disease), Trouble Speaking Psychiatric: Reports: No Symptoms Hematologic/Lymphatic: Reports: No Symptoms Immunologic: Reports: No Symptoms - Physical Exam Exam: See Below Exam Limited By: No Limitations General Appearance: Alert, WD/WN, No Apparent Distress, Other (Temperature is 36.2 degrees. Heart rate 59 and sinus. Respiratory 16 with O2 sats of 95% room air. BP elevated 168/69.) Eye Exam: Bilateral Eye: Normal Inspection (No blepharal pallor or scleral icterus.), PERRL (No gaze palsy) Throat/Mouth: Normal Inspection, Normal Lips, Normal Voice. No: Normal Teeth Head Exam: Atraumatic, Normocephalic, Other (No outward signs of any head or facial trauma.) Neck: Normal Inspection. No: Carotid Bruit, Lymphadenopathy (L), Lymphadenopathy (R) Respiratory/Chest: No Respiratory Distress, No Accessory Muscle Use, Crackles (Coarse crackles both lung bases which improved with a few deep breaths suggesting this is atelectasis.). No: Normal Breath Sounds, Rhonchi, Wheezing, Stridor Cardiovascular: No Gallop, No JVD, No Rub, Bradycardia (58/min). No: Normal Peripheral Pulses, No Edema GI/Abdominal: Normal Bowel Sounds, Soft, Non-Tender, No Organomegaly, No Distention. No: Guarding, Rigid, Rebound Neuro Exam (Abbreviated): Alert, Oriented (Disoriented to time), CN II-XII Intact, Normal Cognition (Mild confusion), Other (Essential tremor most evident right upper extremity). No: Normal Gait (Not able to evaluate) DTR: 0: Bicep (R), Bicep (L), Patella (R), Patella (L), Achilles (R), Achilles (L) Back Exam: Normal Inspection, Other (Required help to set up). No: CVA Tenderness (L) ( to listen to his lungs and explore his back), CVA Tenderness (R ) Extremities: Pedal Edema (2+ pitting edema both lower extremities with compression stockings in place.), Limited Range of Motion (Evidence of mild osteoarthritic change in both knees and very limited internal/external rotation of both hips) Psychiatric: Normal Affect, Normal Mood Skin Exam: Warm, Dry, Intact, Normal Color, No Rash #1 Interpretation EKG Date: 05/30/21 Time: 08:11 Rhythm: NSR Rate (Beats/Min): 56 Jefferson: LAD-Left Jefferson Deviation (-59 degrees) P-Wave: Present (First-degree AV block) QRS: Other (Left anterior fascicular block . Right bundle branch block. Near Q wave in leads II, III and aVF consider possible old inferior wall myocardial infarction. Poor R wave progression throughout the precordial leads. Mildly decreased voltage precordial leads) ST-T: Other (Nonspecific T wave flattening aVF.) QT: Prolonged (Minimally prolonged) EKG Interpretation Comments: Abnormal ECG Course - Vital Signs Last Recorded V/S: Last Vital Signs Temp 36.2 C 05/30/21 08:08 Pulse 59 L 05/30/21 08:08 Resp 16 05/30/21 08:08 BP 168/69 H 05/30/21 08:08 Pulse Ox 95 05/30/21 08:08 - Orders/Labs/Meds Orders: Active Orders 24 hr Category Date Time Status Peripheral IV Care [RC] . DIRECTED Care 05/30/21 08:06 Active URINALYSIS W/MICROSCOPIC [UA W/MICROSCOPIC] [URIN] Stat Lab 05/30/21 08:06 Ordered Sodium Chloride 0.9% [Saline Flush] Med 05/30/21 08:06 Active 10 ml FLUSH ASDIRECTED PRN Peripheral IV Insertion Adult [OM.PC] Stat Oth 05/30/21 08:06 Ordered Medication Orders Sodium Chloride (Sodium Chloride 0.9% 10 Ml Syringe) 10 ml FLUSH ASDIRECTED PRN PRN Reason: Keep Vein Open Last Admin: 05/30/21 08:16 Dose: 10 ml Documented by: BETINA Labs: Laboratory Tests 05/30/21 05/30/21 05/30/21 Range/Units 08:12 08:12 08:12 WBC 8.64 (4.23-9.07) K/mm3 RBC 5.15 (4.63-6.08) M/mm3 Hgb 15.1 D (13.7-17.5) gm/dl Hct 47.3 (40.1-51.0) % MCV 91.8 D (79.0-92.2) fl MCH 29.3 (25.7-32.2) pg MCHC 31.9 L (32.2-35.5) g/dl RDW Std Deviation 48.3 H (35.1-43.9) fL Plt Count 195 (163-337) K/mm3 MPV 10.3 (9.4-12.3) fl Neut % (Auto) 71.3 H (34.0-67.9) % Lymph % (Auto) 16.6 L (21.8-53.1) % Dukes % (Auto) 8.6 (5.3-12.2) % Eos % (Auto) 2.8 (0.8-7.0) Baso % (Auto) 0.5 (0.1-1.2) % Neut # (Auto) 6.17 H (1.78-5.38) K/mm3 Lymph # (Auto) 1.43 (1.32-3.57) K/mm3 Dukes # (Auto) 0.74 (0.30-0.82) K/mm3 Eos # (Auto) 0.24 (0.04-0.54) K/mm3 Baso # (Auto) 0.04 (0.01-0.08) K/mm3 Sodium 141 (136-145) mEq/L Potassium 4.4 (3.5-5.1) mEq/L Chloride 103 (98-107) mEq/L Carbon Dioxide 31 (21-32) mEq/L Anion Gap 11.4 (5-15) BUN 26 H (7-18) mg/dL Creatinine 1.3 (0.7-1.3) mg/dL Est Cr Clr Drug Dosing TNP Estimated GFR (MDRD) 52 (>60) mL/min BUN/Creatinine Ratio 20.0 H (14-18) Glucose 96 (70-99) mg/dL Calcium 8.6 (8.5-10.1) mg/dL Magnesium 2.5 H (1.8-2.4) mg/dL Total Bilirubin 1.1 H (0.2-1.0) mg/dL AST 19 (15-37) U/L ALT 18 (16-63) U/L Alkaline Phosphatase 76 (46-116) U/L Troponin I < 0.017 (0.00-0.056) ng/mL C-Reactive Protein 0.2 (<1.0) mg/dL NT-Pro-B Natriuret Pep 780 H (0-450) pg/mL Total Protein 7.7 (6.4-8.2) g/dl Albumin 3.7 (3.4-5.0) g/dl Globulin 4.0 gm/dL Albumin/Globulin Ratio 0.9 L (1-2) SARS-CoV-2 RNA (TREMAYNE) (NEGATIVE) 05/30/21 Range/Units 08:12 WBC (4.23-9.07) K/mm3 RBC (4.63-6.08) M/mm3 Hgb (13.7-17.5) gm/dl Hct (40.1-51.0) % MCV (79.0-92.2) fl MCH (25.7-32.2) pg MCHC (32.2-35.5) g/dl RDW Std Deviation (35.1-43.9) fL Plt Count (163-337) K/mm3 MPV (9.4-12.3) fl Neut % (Auto) (34.0-67.9) % Lymph % (Auto) (21.8-53.1) % Dukes % (Auto) (5.3-12.2) % Eos % (Auto) (0.8-7.0) Baso % (Auto) (0.1-1.2) % Neut # (Auto) (1.78-5.38) K/mm3 Lymph # (Auto) (1.32-3.57) K/mm3 Dukes # (Auto) (0.30-0.82) K/mm3 Eos # (Auto) (0.04-0.54) K/mm3 Baso # (Auto) (0.01-0.08) K/mm3 Sodium (136-145) mEq/L Potassium (3.5-5.1) mEq/L Chloride (98-107) mEq/L Carbon Dioxide (21-32) mEq/L Anion Gap (5-15) BUN (7-18) mg/dL Creatinine (0.7-1.3) mg/dL Est Cr Clr Drug Dosing Estimated GFR (MDRD) (>60) mL/min BUN/Creatinine Ratio (14-18) Glucose (70-99) mg/dL Calcium (8.5-10.1) mg/dL Magnesium (1.8-2.4) mg/dL Total Bilirubin (0.2-1.0) mg/dL AST (15-37) U/L ALT (16-63) U/L Alkaline Phosphatase (46-116) U/L Troponin I (0.00-0.056) ng/mL C-Reactive Protein (<1.0) mg/dL NT-Pro-B Natriuret Pep (0-450) pg/mL Total Protein (6.4-8.2) g/dl Albumin (3.4-5.0) g/dl Globulin gm/dL Albumin/Globulin Ratio (1-2) SARS-CoV-2 RNA (TREMAYNE) Negative (NEGATIVE) Meds: Medications Generic Name Dose Route Start Last Admin Trade Name Freq PRN Reason Stop Dose Admin Sodium Chloride 10 ml 05/30/21 08:06 05/30/21 08:16 Sodium Chloride 0.9% 10 Ml Syringe FLUSH 10 ml ASDIRECTED PRN Administration Keep Vein Open - Radiology Interpretation Free Text/Narrative:: 86-year-old male who is currently a resident of [facility] presents to the ED after being found unresponsive in his easy chair around 0615 hrs. this morning. He had been awakened around 0445 hrs. which is the report per usual waking time and did receive initial medications. Apparently he was very obtunded and did not respond to physical or verbal stimulation. For this reason the ambulance was summoned. The ambulance paramedics identified that he had altered level of consciousness as well but this improved in route to the hospital in the ambulance as he suddenly awoke and was able to converse with them normally. Here his vital signs are stable as they were recorded at the intermediate they were also stable. He answers questions to the best of his ability. He has mild dementia and Parkinson's disease. I suspect he actually fell deep asleep possibly from autonomic nervous system dysfunction and sedative medications he receives at bedtime. Routine labs and ECG and a chest x-ray will be obtained. - Re-Assessments/Exams Free Text/Narrative Re-Assessment/Exam: 05/30/21 09:01: Chest x-ray done portably reveals hyperinflated lung bustamante without any pulmonary infiltrates. Slight scar tissue appreciated both lung bases. No pleural effusions. Heart is mildly enlarged. 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 Mediastinum appears normal. 05/30/21 09:02 Hematology reveals a normal white count at 8.64. Differential shows 71.3% neutrophils. Hemoglobin is 15.1 with hematocrit of 47.3. Platelet count 295,000 05/30/21 09:19 Sodium is 141 with potassium of 4.4. Chloride 103 with a bicarb of 31. Anion gap is 11.4. BUN is 26 with a creatinine of 1.3 estimated GFR is 52. Glucose is 96 with a calcium of 8.6. Magnesium is mildly elevated at 2.5 bilirubin is 1.1. AST is 19 with an ALT of 18 and alkaline phosphatase of 76. Troponin I is less than 0.017. C-reactive protein is 0.2 total protein 7.7 with an albumin fraction of 3.7. 05/30/21 09:32 Troponin I is less than 0.017 C-reactive protein 0.2 BNP is 780. COVID-19 screen is pending 05/30/21 10:17 COVID-19 screen is negative as well. He is conversing normally at this time and actually shook my hand. I believe that combination of sedative medications Parkinson's disease and early dementia likely contributed to some autonomic nervous system dysfunction creating transient loss of consciousness which often makes them look like they are and unable to awaken them. This is likely to happen again. Less likely cause could be an atypical seizure that again can happen due to underlying organic brain disease. The patient will therefore be returned to [facility]. Departure - Departure Time of Disposition: : Disposition: DC/Tfer to [facility] Condition: Fair Clinical Impression: Altered level of consciousness, Primary Parkinson's disease Constipation Qualifiers: Constipation type: other constipation type Qualified Code(s): K59.09 - Other constipation - Discharge Information *PRESCRIPTION DRUG MONITORING PROGRAM REVIEWED*: Not Applicable *COPY OF PRESCRIPTION DRUG MONITORING REPORT IN PATIENT LUIS FERNANDO: Not Applicable Referrals: Israel Leonard MD [Primary Care Provider] - Forms: ED Department Discharge Additional Instructions: Evaluation in the emergency room this morning in regards to altered level of consciousness at [facility] where he reside. They were unable to arouse you by aggressive physical stimulation and no verbal response. You awakened in the ambulance in route to the hospital and you were able to converse normally in the emergency room with no sign of a neurological deficit. Evidence of Parkinson's disease with essential tremor in all extremities. All the lab tests done in the emergency room as well as a Covid test proved to be negative. You ate a good breakfast and you have received your medications for the morning. It appears that altered level of conscious occurred possibly due to combination of sedative medications i.e. gabapentin at bedtime and Requip in combination with Parkinson's disease which will often cause a autonomic nervous system dysfunction which will cause you to suddenly lose consciousness for a short period of time like you are deeply asleep. Less likely is an atypical seizure that could have occurred to have caused symptom complex although you had no postictal phase while in the ED. at this time no changes to medications are to be made. Sepsis Event Note (ED) - Focused Exam Vital Signs: Vital Signs Temp Pulse Resp BP Pulse Ox 05/30/21 08:08 36.2 C 59 L 16 168/69 H 95 - My Orders Last 24 Hours: My Active Orders 05/30/21 08:06 Peripheral IV Care [RC] . DIRECTED URINALYSIS W/MICROSCOPIC [UA W/MICROSCOPIC] [URIN] Stat Sodium Chloride 0.9% [Saline Flush] 10 ml FLUSH ASDIRECTED PRN Peripheral IV Insertion Adult [OM.PC] Stat - Assessment/Plan Last 24 Hours: My Active Orders 05/30/21 08:06 Peripheral IV Care [RC] . DIRECTED URINALYSIS W/MICROSCOPIC [UA W/MICROSCOPIC] [URIN] Stat Sodium Chloride 0.9% [Saline Flush] 10 ml FLUSH ASDIRECTED PRN Peripheral IV Insertion Adult [OM.PC] Stat
[2021-05-30 08:15] VITALS: BP 168/69; PULSE 59
--- NOTE | 2021-05-30 08:52 | CR ---
Chest: Frontal view of the chest was obtained. Comparison: Prior chest x-ray of 07/30/12. Heart size is normal. Upper mediastinum is within normal limits. Lungs are clear with no acute parenchymal change. Patient's chin obscures a portion of the left upper chest. Bony structures are osteopenic but show nothing acute. Impression: 1. Patient's chin obscures the upper left chest. 2. Nothing acute is seen on frontal chest x-ray. Diagnostic code #2
== END 2021-05-30 11:07 ==
LOC: JD.ED 08:00
DX: G20 Parkinson's disease (principal); K59.09 Other constipation; Z20.822 Contact with and (suspected) exposure to COVID-19; Z88.0 Allergy status to penicillin; Z88.2 Allergy status to sulfonamides; Z79.899 Other long term (current) drug therapy
CPT/HCPCS: 36415; 71045; 80053; 83735; 83880; 84484; 85025; 86140; 93005; 99285; U0002